=== PATIENT | male | born 1935 | race Caucasian/White ===

== ENCOUNTER 2019-03-28 14:12 | Inpatient (IN) | payer OTHER, MEDICARE ==
--- NOTE | 2019-03-28 14:24 | PDOC ---
Attending Attestation - Resident Resident Name: Mitzi Wisdom - ED Attending Attestation I have performed the following: I have examined & evaluated the patient, The case was reviewed & discussed with the resident, I agree w/resident's findings & plan, Exceptions are as noted - HPI HPI: 03/28/19 14:32 83-year-old male, was visiting his daughter in [place] yesterday, slid on some wet grass and fractured his right ankle. Seen at [facility], splinted, given crutches, which he has extreme difficulty in using. Has been getting around with a cane, using the cane to pressed the accelerator on his car when he drives. He lives alone, closest relatives are in [place], but they were out of the country on vacation. Has another daughter inherited chills undergoing chemotherapy for colon cancer. No smoking drinking or drugs. Past medical history significant for type 2 diabetes for 25 years and hypertension, both controlled on medication. No history of MN, CVA, chest or abdominal surgery. Surgery on his lumbosacral spine was [place] [address] Anthony, and he has been stable. - Physicial Exam PE: 03/28/19 14:35 Physical exam: Alert and oriented cheerful and cooperative no acute distress. Afebrile, vital signs normal HEENT clear Neck supple without bruit mass or nodes Lungs clear CV regular without murmur rub or gallop Abdomen benign Extremities: Right ankle splinted and wrapped. Mild calf edema. - Medical Decision Making 03/28/19 14:36 Assessment: Ankle fracture. Unable to care for himself at home. Plan: Admit for ORIF. Institution of physical therapy, and rehabilitation placement.
--- NOTE | 2019-03-28 14:39 | PDOC ---
History of Present Illness - General Chief Complaint: Pain, Acute Stated Complaint: right ankle fx Time Seen by Provider: 03/28/19 14:22 History Source: Patient Exam Limitations: No Limitations - History of Present Illness Initial Comments: Pt is an 83 yo M, with PMH of HTN, HLD, "heart murmur", and NIDDM, who is presenting after being diagnosed with an ankle fracture yesterday. Pt states yesterday he fell down 4 stairs, landing onto his buttocks. Pt denies hitting his head, LOC, nausea/vomiting, or confusion. Pt went to [facility], and had a hard splint applied to his R ankle after showing an ankle fracture on x- ray. Dr. Anthony is aware of pts images, however the pt had no family at home to help him get around the house or bring him to his surgery tomorrow, so he came to the ER today. Pt denies any fevers/chills, headache, vision changes, syncope , chest pain, palpitations, SOB, nausea/vomiting, abdominal pain, urinary symptoms, diarrhea/constipation, numbness/tingling/weakness in the extremities, or leg swelling. Allergies: NKDA Ortho: Dr. Anthony Social: Pt denies any cigarette, alcohol, or drug use. Pt denies any recent travel or sick contacts. Surgical: "back surgery" (done by Dr. Anthony, per pt). Family: no relevant history. 03/28/19 14:50 03/28/19 15:45 03/28/19 15:57 Past History - Travel Traveled outside of the country in the last 30 days: No Close contact w/someone who was outside of country & ill: No - Past Medical History Allergies/Adverse Reactions: Allergies Allergy/AdvReac Type Severity Reaction Status Date / Time Penicillins Allergy Severe Hives Verified 03/28/19 14:14 Home Medications: Ambulatory Orders Amlodipine Besylate [Norvasc -] 10 mg PO DAILY 03/28/19 Atenolol [Tenormin -] 50 mg PO DAILY 03/28/19 Glipizide [Glucotrol -] 10 mg PO BID 03/28/19 Metformin HCl [Glucophage] 1,000 mg PO BID 03/28/19 Pravastatin Sodium [Pravachol] 40 mg PO HS 03/28/19 Sitagliptin Phosphate [Januvia] 100 mg PO DAILY 03/28/19 Anemia: No Asthma: No Cancer: No Cardiac Disorders: Yes (MURMUR) CVA: No COPD: No CHF: No Dementia: No Diabetes: Yes (type 2 10-15 years) GI Disorders: No Disorders: No HTN: Yes Hypercholesterolemia: Yes Liver Disease: No Seizures: No Thyroid Disease: No - Surgical History Abdominal Surgery: No Appendectomy: No Cardiac Surgery: Yes (Endarterectomy L(2007)R(2008)) Cholecystectomy: No Lung Surgery: No Neurologic Surgery: No Orthopedic Surgery: No - Immunization History Immunization Up to Date: Yes - Suicide/Smoking/Psychosocial Hx Smoking Status: Yes Smoking History: Former smoker Have you smoked in the past 12 months: No Number of Cigarettes Smoked Daily: 0 Cigars Per Day: 0 Information on smoking cessation initiated: No Hx Alcohol Use: No Drug/Substance Use Hx: No Substance Use Type: None Review of Systems - Review of Systems Able to Perform ROS?: Yes Is the patient limited Slovak proficient: No Constitutional: Yes: Weight Stable. No: Chills, Diaphoresis, Fever, Malaise, Weakness HEENTM: No: Blurred Vision, Double Vision, Nose Congestion, Throat Pain, Throat Swelling, Difficulty Swallowing Respiratory: No: Cough, Orthopnea, Shortness of Breath Cardiac (ROS): No: Chest Pain, Edema, Irregular Heart Rate, Lightheadedness, Palpitations, Syncope, Chest Tightness ABD/GI: No: Constipated, Diarrhea, Nausea, Poor Appetite, Poor Fluid Intake, Vomiting : No: Burning, Dysuria, Frequency, Pain, Urgency Musculoskeletal: Yes: See HPI, Joint Pain (R ankle pain s/p fall). No: Back Pain, Muscle Pain, Muscle Weakness, Neck Pain Integumentary: No: Bruising, Rash Neurological: No: Headache, Numbness, Paresthesia, Weakness, Unsteady Gait, Dizziness Psychiatric: No: Sleep Pattern Change, Change in Appetite Endocrine: No: Increased Urine, Change in Weight Hematologic/Lymphatic: No: Anemia, Blood Clots, Easy Bleeding, Easy Bruising All Other Systems: Reviewed and Negative *Physical Exam - Vital Signs Last Vital Signs Temp Pulse Resp BP Pulse Ox 98.9 F 60 18 152/61 97 03/28/19 14:13 03/28/19 14:13 03/28/19 14:13 03/28/19 14:13 03/28/19 14:13 - Physical Exam Comments: Vitals stable, pt afebrile. Pt in NAD, normal body habitus. Pt alert and oriented x3. 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 No midline spinal tenderness, step-offs, or crepitus. Head normocephalic, atraumatic. Eyes PERRLA, EOMI. Oropharynx without erythema or exudates, no LAD b/l. No nasal congestion, hearing intact. Clear heart sounds, S1/S2, no JVD, b/l pedal edema, or heart murmur. Clear lung sounds, no respiratory distress, wheezes, crackles, or accessory muscle use. No abdominal or CVA tenderness to palpation, no rebound, no guarding. Abdomen soft, non-distended, and with normoactive bowel sounds. Hard splint applied to R ankle. Sensation and capillary refill intact in b/l LE. Skin without jaundice or rash. 03/28/19 15:59 ED Treatment Course - LABORATORY CBC & Chemistry Diagram: 03/28/19 14:38 03/28/19 14:35 Medical Decision Making - Medical Decision Making Pt was seen at bedside, also will be seen by attending Dr. Howell. Pt presenting with R ankle fracture in splint, for surgery with Dr. Anthony tomorrow. Ordered pre-operative labwork. Provided 1 g IV ofirmev for improvement of pain. Will continue to reassess pt and monitor for symptomatic improvement. ECG: NSR, intervals WNL (HR 60, FL 190, QRS 96, QTc 406). TWIs in II. Q waves anterior leads. No significant changes from prior ECG (2012). Placed consult for surgery due to murmur and Q waves to make sure pt is stable for surgery. 03/28/19 15:01 CBC and CMP WNL. Pt admitted to hospitalist team, will get surgery on R ankle tomorrow with Dr. Anthony. Pt resting comfortably. 03/28/19 16:00 *DC/Admit/Observation/Transfer Diagnosis at time of Disposition: Ankle fracture, right Qualifiers: Encounter type: initial encounter Fracture type: closed Qualified Code(s): S82.891A - Other fracture of right lower leg, initial encounter for closed fracture - Discharge Dispostion Condition at time of disposition: Stable Decision to Admit order: Yes - Referrals - Patient Instructions - Post Discharge Activity
[2019-03-28 15:00] LABS: BASO % 0.3 % (0-2.0); EOS % 2.2 % (0-4.5); HEMATOCRIT 36.2 % (35.4-49); HEMOGLOBIN 12.1 GM/dl (11.7-16.9); LYMPH % 9.6 % (8-40); MCH 30.1 pg (25.7-33.7); MCHC 33.5 g/dl (32.0-35.9); MEAN CELL VOLUME 89.7 fl (80-96); MEAN PLT VOLUME 8.3 fl (7.5-11.1); NEUT % 78.9 % (42.8-82.8); PLATELET COUNT 305 K/MM3 (134-434); RBC 4.03 M/mm3 (4.00-5.60); RDW 13.6 % (11.9-15.9); WHITE BLOOD COUNT 6.8 K/mm3 (4.0-10.8)
[2019-03-28 15:04] LABS: INR 1.25 (0.82-1.09); PROTHROMBIN TIME (PATIENT) 13.9 SEC (10.2-13.0)
[2019-03-28 15:08] LABS: ALBUMIN 3.8 g/dl (3.4-5.0); BILIRUBIN,TOTAL 1.1 mg/dl (0.2-1); CALCIUM 9.5 mg/dl (8.5-10); CREATININE 0.9 mg/dl (0.55-1.3); POTASSIUM 4.5 mmol/L (3.5-5.1); TOT PROT 6.9 g/dl (6.4-8.2)
[2019-03-28] MEDS ORDERED: ACETAMINOPHEN 1000 MG/100 ML VIAL (NON FORMULARY) IVPB ONE (15:08)
--- NOTE | 2019-03-28 15:14 | CON.CARD ---
Consult Consult Specialty:: cardio - History of Present Illness Chief Complaint: preop History of Present Illness: 83 M here with ankle fracture. had mechanical injury to ankle (wet grass, slipped), planned for surgical repair. due to abnormal ekg we were asked to evaluate his preop CV risk/optimization he is not very active in his routine. walks about 2 blocks to [place] when mg for MD visit there--doesn't stop, no cp or sob. no stairs in his routine. never notices any cp or sob sx's. diagnosed with "murmur" in 1950s when entered [facility]. had echo few months ago with pmd at [place], not told of any problems or necessary treatments. doesn't see cardio denies h/o CAD/TN, CHF, arrhythmia or stroke. PMH: HTN HPL remote bilateral CEAs no sigs - Alcohol/Substance Use Hx Alcohol Use: No - Smoking History Smoking history: Former smoker Have you smoked in the past 12 months: No Aproximately how many cigarettes per day: 0 Home Medications - Allergies Allergies/Adverse Reactions: Allergies Allergy/AdvReac Type Severity Reaction Status Date / Time Penicillins Allergy Severe Hives Verified 03/28/19 14:14 - Home Medications Home Medications: Ambulatory Orders Amlodipine Besylate [Norvasc -] 10 mg PO DAILY 03/28/19 Atenolol [Tenormin -] 50 mg PO DAILY 03/28/19 Glipizide [Glucotrol -] 10 mg PO BID 03/28/19 Metformin HCl [Glucophage] 1,000 mg PO BID 03/28/19 Pravastatin Sodium [Pravachol] 40 mg PO HS 03/28/19 Sitagliptin Phosphate [Januvia] 100 mg PO DAILY 03/28/19 Family Disease History - Family Disease History Family History: Denies (no known cmp) Review of Systems - Review of Systems Constitutional: denies: Chills, Fever Eyes: denies: Eye Pain HENT: denies: Nasal Congestion Neck: denies: Stiffness Cardiovascular: denies: Palpitations Respiratory: denies: Orthopnea, PND Gastrointestinal: denies: Diarrhea, Rectal Bleeding Genitourinary: denies: Burning, Hematuria Musculoskeletal: denies: Muscle Pain Integumentary: denies: Rash Neurological: denies: Numbness, Seizure, Syncope Endocrine: denies: Excessive Sweating Hematology/Lymphatic: denies: Excessive Bleeding Vital Signs: Vital Signs Temperature 98.9 F 03/28/19 14:13 Pulse Rate 60 03/28/19 14:13 Respiratory Rate 18 03/28/19 14:13 Blood Pressure 152/61 03/28/19 14:13 O2 Sat by Pulse Oximetry (%) 97 03/28/19 14:13 Constitutional: Yes: Well Nourished, No Distress Eyes: No: Sclera Icterus HENT: No: Nasal Congestion Neck: No: Decreased ROM Respiratory: Yes: CTA Bilaterally. No: Accessory Muscle Use, Rales, Wheezes Gastrointestinal: Yes: Normal Bowel Sounds. No: Distention, Hepatomegaly, Palpable Mass, Tenderness Cardiovascular: Yes: Regular Rate and Rhythm JVD: No Carotid Bruit: Yes PMI: Non-Displaced Heart Sounds: Yes: S1, S2 (reduced intensity). No: Gallop Murmur: Yes: Systolic Murmur (2/6 early MARY BETH lusb, soft sounds no S2 split heard. probably soft, flat murmur at apex). No: Diastolic Murmur Musculoskeletal: Yes: Other (No kyphosis) Extremities: No: Cold, Cyanosis Edema: No Peripheral Pulses: 2+ Left Carotid, 2+ Right Carotid, 2+ Left Doralis Pedis, 2+ Right Dorsalis Pedis Integumentary: No: Jaundice Neurological: Yes: Alert, Oriented (x3) Psychiatric: No: Agitated - Other Data Labs, Other Data: CBC, BMP 03/28/19 14:38 INR, PTT INR 1.25 (0.82-1.09) H 03/28/19 14:38 Assessment/Plan ECG: NSR, normal axis/intervals. q waves inferior leads, V-V3 with small R wave V4--anterior leads not signif changed vs 2011, 2013 priors, however q wave in avF is new CXR: clear lungs/pleura ankle frx, abnormal ecg, preop CV eval: -Revised CV Risk Index = 1, preserved functional capacity -has chronic murmur, no intervention has been rec'd as of echo done at [place] 3 mo ago (in [facility]). -phys exam likely mitral regurgitation (which does not significantly increase CV risk of surgery/anesthesia, given no signs of chf), and probably second murmur that is soft and hence not likely to represent severe but due to overall decr intensity heart sounds, cannot definitively evaluate this (no S2 split heard) -he should have echo in AM to rule out severe , for risk stratification prior to surgery (and for possible anesthesia agent considerations) -possible L > R carotid bruits, more likely transmitted heart murmur--will check dopplers prior to surgery as well (pt with h/o bilateral CEAs) -hold home aspirin preop -cont home bb (atenolol) -nonspecific change in avF on ekg, possibly intercurrent silent IWMI vs 2012-- regardless, in absence of active angina this does not significantly alter surgical risk and no stress testing is warranted here, as per ACC guidelines HTN: -bp mildly elevated presently -cont home meds, observe trend HPL: -on prava at home--cont same, outpt f/u rec'd DM: -per hospitalist
--- NOTE | 2019-03-28 15:29 | HP ---
CHIEF COMPLAINT: Right ankle fracture PCP: Followed at the [place] HISTORY OF PRESENT ILLNESS: 83-year-old male with a PMH significant for HTN, HLD, CAD, carotid artery disease, and Type II NIDDM presented to the ED today for evaluation of right ankle pain. Patient slipped and fell yesterday descending an outside staircase that was slippery from rain. He went to [facility], had xrays, and was told the ankle was fractured and to follow up with an orthopedist. Today patient was seen by Dr. Anthony. Xray showed right bimalleolar ankle fracture. Plan is for ORIF tomorrow with Dr. Eisenberg pending cardiac clearance. 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 prior to back surgery in 2012 ; wishes to avoid all narcotic medication Family History: Mother 77 PNA; father 52 MT; 1/2 brother 78 stomach cancer; sister 77 spesis; 1 daughter age 65 with colon cancer; 3 other children a&w Allergies Penicillins Allergy (Severe, Verified 03/28/19 14:14) Hives HOME MEDICATIONS: Home Medications Medication Instructions Recorded Amlodipine Besylate [Norvasc -] 10 mg PO DAILY 03/28/19 Atenolol [Tenormin -] 50 mg PO DAILY 03/28/19 Glipizide [Glucotrol -] 10 mg PO BID 03/28/19 Metformin HCl [Glucophage] 1,000 mg PO BID 03/28/19 Pravastatin Sodium [Pravachol] 40 mg PO HS 03/28/19 Sitagliptin Phosphate [Januvia] 100 mg PO DAILY 03/28/19 REVIEW OF SYSTEMS CONSTITUTIONAL: Absent: fever, chills, diaphoresis, generalized weakness, malaise, loss of appetite, weight change HEENT: Absent: rhinorrhea, nasal congestion, throat pain, throat swelling, difficulty swallowing, mouth swelling, ear pain, eye pain, visual changes CARDIOVASCULAR: Absent: chest pain, syncope, palpitations, irregular heart rate, lightheadedness , peripheral edema RESPIRATORY: Absent: cough, shortness of breath, dyspnea with exertion, orthopnea, wheezing, stridor, hemoptysis GASTROINTESTINAL: Absent: abdominal pain, abdominal distension, nausea, vomiting, diarrhea, constipation, melena, hematochezia GENITOURINARY: Absent: dysuria, frequency, urgency, hesitancy, hematuria, flank pain, genital pain MUSCULOSKELETAL: +right ankle pain Absent: myalgia, arthralgia, joint swelling, back pain, neck pain SKIN: Absent: rash, itching, pallor HEMATOLOGIC/IMMUNOLOGIC: Absent: easy bleeding, easy bruising, lymphadenopathy, frequent infections ENDOCRINE: Absent: unexplained weight gain, unexplained weight loss, heat intolerance, cold intolerance NEUROLOGIC: Absent: headache, focal weakness or paresthesias, dizziness, unsteady gait, seizure, mental status changes, bladder or bowel incontinence PSYCHIATRIC: Absent: anxiety, depression, suicidal or homicidal ideation, hallucinations. PHYSICAL EXAMINATION Vital Signs - 24 hr 03/28/19 14:13 Temperature 98.9 F Pulse Rate 60 Respiratory 18 Rate Blood Pressure 152/61 O2 Sat by Pulse 97 Oximetry (%) GENERAL: Awake, alert, and fully oriented, in no acute distress. HEAD: Normal with no signs of trauma. EYES: Pupils equal, round and reactive to light, extraocular movements intact, sclera anicteric, conjunctiva clear. No lid lag. LUNGS: Breath sounds equal, clear to auscultation bilaterally. No wheezes, and no crackles. No accessory muscle use. HEART: Regular rate and rhythm, S1 and S2 ABDOMEN: Soft, nontender, not distended UPPER EXTREMITIES: 2+ pulses, warm, well-perfused. No cyanosis. No clubbing. No peripheral edema. LOWER EXTREMITIES: 2+ pulses, warm, well-perfused. No calf tenderness. No peripheral edema. MUSCULOSKELETAL: RIGHT ANKLE: Victor Manuel bandage with splint; exposed toes pink, warm, dry, +flex/extend, 5/5 sensory NEUROLOGICAL: Cranial nerves II-XII intact. Normal speech. Laboratory Results - last 24 hr 03/28/19 03/28/19 03/28/19 14:35 14:35 14:38 WBC 6.8 RBC 4.03 Hgb 12.1 Hct 36.2 MCV 89.7 MCH 30.1 MCHC 33.5 RDW 13.6 Plt Count 305 MPV 8.3 Absolute Neuts (auto) 5.5 Neutrophils % 78.9 Lymphocytes % 9.6 Monocytes % 9.0 Eosinophils % 2.2 Basophils % 0.3 PT with INR INR Sodium 136 Potassium 4.5 Chloride 100 Carbon Dioxide 29 Anion Gap 7 L BUN 26.0 H Creatinine 0.9 Est GFR (CKD-EPI)AfAm 89.95 Est GFR (CKD-EPI)NonAf 77.61 Random Glucose 203 H Calcium 9.5 Total Bilirubin 1.1 H AST 18 ALT 22 Alkaline Phosphatase 54 Creatine Kinase 42 Troponin I < 0.03 Total Protein 6.9 Albumin 3.8 03/28/19 14:38 WBC RBC Hgb Hct MCV MCH MCHC RDW Plt Count MPV Absolute Neuts (auto) Neutrophils % Lymphocytes % Monocytes % Eosinophils % Basophils % PT with INR 13.9 H INR 1.25 H Sodium Potassium Chloride Carbon Dioxide Anion Gap BUN Creatinine Est GFR (CKD-EPI)AfAm Est GFR (CKD-EPI)NonAf Random Glucose Calcium Total Bilirubin AST ALT Alkaline Phosphatase Creatine Kinase Troponin I Total Protein Albumin ASSESSMENT/PLAN 83-year-old male with a PMH significant for HTN, HLD, CAD, carotid artery disease, and Type II NIDDM. Admitted for right bimalleolar fracture. Right bimalleolar ankle fracture --plan is for ORIF with Dr. Eisenberg pending cardiology clearance --AVOID OPIOIDS, patient reports previous problem with oxycodone surrounding back surgery and he is anxious to avoid Coronary artery disease Abnormal ECG --seen and evaluated by cardiology, needs echo and US carotids in am --NOT yet cleared for surgery Hypertension --continue atenolol, amlodipine Hyperlipidemia --continue Lipitor Carotid artery disease --hold ASA, continue Lipitor Type II NIDDM --Novolog sliding scale coverage FEN Fluids: PO intake adequate Electrolytes: replete as indicated Nutrition: diabetic, low sodium; NPO after midnight DVT prophylaxis: TEDs, SCD left leg Physical therapy Dispo: continues to require inpatient care. Full code. Visit type - Emergency Visit Emergency Visit: Yes ED Registration Date: 03/28/19 Care time: The patient presented to the Emergency Department on the above date and was hospitalized for further evaluation of their emergent condition. - New Patient This patient is new to me today: Yes Date on this admission: 03/28/19 - Critical Care Critical Care patient: No
[2019-03-28] MEDS ORDERED: ACETAMINOPHEN INJECTION 100 ML IVPB ONE (15:54)
--- NOTE | 2019-03-28 18:36 | PN ---
Progress Note (short form) - Note Progress Note: Patient evaluated in office today. Sustained right ankle fracture yesterday. Drove to hospital using cane to push accelerator. Admitted for surgical treatment IMP: Right bimalleolar ankle fracture -for ORIF with Dr Eisenberg tomorrow pending med clearance -plan discussed with Dr Eisenberg -NPO after midnight
[2019-03-28 18:45] VITALS: BMI 24.3
[2019-03-28] MEDS ORDERED: ACETAMINOPHEN 1000 MG/100 ML VIAL (NON FORMULARY) IVPB PRN (21:00)
[2019-03-28] MEDS: ATORVASTATIN CA 10 MG TABLET (FP) PO SCH (21:01)
[2019-03-28] MEDS: INSULIN SLIDING SCALE (NOVOLOG) 1 VIAL SQ SCH (21:27)
[2019-03-28] MEDS ORDERED: SODIUM CHLORIDE 1,000 ML IV SCH (23:59)
[2019-03-29] MEDS: INSULIN SLIDING SCALE (NOVOLOG) 1 VIAL SQ SCH ×3 (06:33→22:01)
--- NOTE | 2019-03-29 07:38 | PN ---
Physical Exam: SUBJECTIVE: Patient seen and examined at bedside. OBJECTIVE: Vital Signs Period Temp Pulse Resp BP Sys/Ruiz Pulse Ox Last 24 Hr 98.3 F-99.4 F 56-76 16-18 124-152/38-61 93-98 GENERAL: The patient is awake, alert, and fully oriented, in no acute distress. LUNGS: Breath sounds equal, clear to auscultation bilaterally HEART: Regular rate and rhythm, S1, S2 ABDOMEN: Soft, nontender, nondistended, EXTREMITIES: 2+ pulses, warm, well-perfused, no edema. NEUROLOGICAL: Cranial nerves II through XII grossly intact. Normal speech, gait not observed. MUSCULOSKELETAL: RIGHT ANKLE: Victor Manuel bandage with splint; exposed toes pink, warm, dry, +flex/extend, 5/5 sensory Laboratory Results - last 24 hr 03/28/19 03/28/19 03/28/19 14:35 14:35 14:38 WBC 6.8 RBC 4.03 Hgb 12.1 Hct 36.2 MCV 89.7 MCH 30.1 MCHC 33.5 RDW 13.6 Plt Count 305 MPV 8.3 Absolute Neuts (auto) 5.5 Neutrophils % 78.9 Lymphocytes % 9.6 Monocytes % 9.0 Eosinophils % 2.2 Basophils % 0.3 PT with INR INR Sodium 136 Potassium 4.5 Chloride 100 Carbon Dioxide 29 Anion Gap 7 L BUN 26.0 H Creatinine 0.9 Est GFR (CKD-EPI)AfAm 89.95 Est GFR (CKD-EPI)NonAf 77.61 POC Glucometer Random Glucose 203 H Calcium 9.5 Total Bilirubin 1.1 H AST 18 ALT 22 Alkaline Phosphatase 54 Creatine Kinase 42 Troponin I < 0.03 Total Protein 6.9 Albumin 3.8 Urine Color Urine Appearance Urine pH Urine Protein Urine Glucose (UA) Urine Ketones Urine Blood Urine Nitrite Urine Bilirubin Urine Urobilinogen Ur Leukocyte Esterase Urine RBC Urine WBC Urine Bacteria 03/28/19 03/28/19 03/28/19 14:38 15:50 20:51 WBC RBC Hgb Hct MCV MCH MCHC RDW Plt Count MPV Absolute Neuts (auto) Neutrophils % Lymphocytes % Monocytes % Eosinophils % Basophils % PT with INR 13.9 H INR 1.25 H Sodium Potassium Chloride Carbon Dioxide Anion Gap BUN Creatinine Est GFR (CKD-EPI)AfAm Est GFR (CKD-EPI)NonAf POC Glucometer 155 Random Glucose Calcium Total Bilirubin AST ALT Alkaline Phosphatase Creatine Kinase Troponin I Total Protein Albumin Urine Color Yellow Urine Appearance Clear Urine pH 5.5 Urine Protein 1+ H Urine Glucose (UA) Trace Urine Ketones 1+ H Urine Blood Negative Urine Nitrite Negative Urine Bilirubin Negative Urine Urobilinogen 0.2 Ur Leukocyte Esterase Negative Urine RBC 0-2 Urine WBC 5-10 Urine Bacteria Few 03/29/19 06:19 WBC RBC Hgb Hct MCV MCH MCHC RDW Plt Count MPV Absolute Neuts (auto) Neutrophils % Lymphocytes % Monocytes % Eosinophils % Basophils % PT with INR INR Sodium Potassium Chloride Carbon Dioxide Anion Gap BUN Creatinine Est GFR (CKD-EPI)AfAm Est GFR (CKD-EPI)NonAf POC Glucometer 156 Random Glucose Calcium Total Bilirubin AST ALT Alkaline Phosphatase Creatine Kinase Troponin I Total Protein Albumin Urine Color Urine Appearance Urine pH Urine Protein Urine Glucose (UA) Urine Ketones Urine Blood Urine Nitrite Urine Bilirubin Urine Urobilinogen Ur Leukocyte Esterase Urine RBC Urine WBC Urine Bacteria Active Medications Generic Name Dose Route Start Last Admin Trade Name Freq PRN Reason Stop Dose Admin Acetaminophen 1,000 mg 03/28/19 21:00 03/29/19 02:33 Ofirmev Injection - IVPB 1,000 mg Q6H PRN Administration PAIN LEVEL 1-5 Amlodipine Besylate 10 mg 03/29/19 10:00 Norvasc - PO DAILY OSCAR Atenolol 50 mg 03/29/19 10:00 Tenormin - PO DAILY OSCAR Atorvastatin Calcium 10 mg 03/28/19 22:00 03/28/19 21:01 Lipitor - PO 10 mg HS OSCAR Administration Sodium Chloride 1,000 mls @ 100 mls/hr 03/28/19 23:59 03/29/19 00:00 Normal Saline - IV 100 mls/hr ASDIR OSCAR Administration Insulin Aspart 1 vial 03/28/19 22:00 03/29/19 06:33 Novolog Vial Sliding Scale - SQ Not Given ACHS [facility] Protocol ASSESSMENT/PLAN 83-year-old male with a PMH significant for HTN, HLD, CAD, carotid artery disease, and Type II NIDDM. Admitted for right bimalleolar fracture. Right bimalleolar ankle fracture --cleared by cardiology; to OR this afternoon --AVOID OPIOIDS, patient reports previous problem with oxycodone surrounding back surgery and he is anxious to avoid Coronary artery disease Hypertension --continue atenolol, amlodipine Hyperlipidemia --continue Lipitor Carotid artery disease --hold ASA, continue Lipitor Type II NIDDM --Novolog sliding scale coverage FEN Fluids: NS@100mL/hr while NPO Electrolytes: replete as indicated Nutrition: NPO DVT prophylaxis: TEDs, SCD left leg Physical therapy Dispo: continues to require inpatient care. Full code. Visit type - Emergency Visit Emergency Visit: Yes ED Registration Date: 03/28/19 Care time: The patient presented to the Emergency Department on the above date and was hospitalized for further evaluation of their emergent condition. - New Patient This patient is new to me today: No - Critical Care Critical Care patient: No
[2019-03-29 08:41] LABS: BASO % 0.3 % (0-2.0); EOS % 4.1 % (0-4.5); HEMATOCRIT 35.5 % (35.4-49); HEMOGLOBIN 12.3 GM/dl (11.7-16.9); LYMPH % 17.8 % (8-40); MCH 30.8 pg (25.7-33.7); MCHC 34.5 g/dl (32.0-35.9); MEAN CELL VOLUME 89.3 fl (80-96); MEAN PLT VOLUME 8.8 fl (7.5-11.1); MONO % 10.9 % (3.8-10.2); NEUT % 66.9 % (42.8-82.8); PLATELET COUNT 293 K/MM3 (134-434); RBC 3.97 M/mm3 (4.00-5.60); RDW 13.8 % (11.9-15.9)
[2019-03-29 09:04] LABS: ALBUMIN 3.6 g/dl (3.4-5.0); CALCIUM 9.3 mg/dl (8.5-10); CREATININE 0.9 mg/dl (0.55-1.3); MAGNESIUM 1.3 mg/dL (1.8-2.4); POTASSIUM 4.2 mmol/L (3.5-5.1); TOT PROT 6.5 g/dl (6.4-8.2)
[2019-03-29] MEDS: amLODIPine BESYLATE 10 MG TABLET (FP) PO SCH (09:20)
[2019-03-29] MEDS: ATENOLOL 50 MG TABLET (FP) PO SCH (09:20)
--- NOTE | 2019-03-29 10:31 | ECHO ---
Name: ISAIAS MENDOZA Exam:Adult Echocardiogram Study Date: 03/29/2019 09:34 AM Age: 83 yrs Reason For Study: Pre-op Height: 67 in Weight: 154 lb BSA: 1.8 m2 MMode/2D Measurements & Calculations IVSd: 1.4 cm Ao root diam: 3.3 cm LVIDd: 3.7 cm LA dimension: 3.5 cm LVIDs: 2.1 cm LVPWd: 1.4 cm EDV(Teich): 57.7 ml LVOT diam: 2.0 cm ESV(Teich): 14.6 ml Doppler Measurements & Calculations MV E max charbel: 96.6 cm/sec MV A max charbel: 156.2 cm/sec MV dec slope: 376.5 cm/sec2 MV E/A: 0.62 Ao V2 max: 219.0 cm/sec LV V1 max P.4 mmHg Ao max P.2 mmHg LV V1 mean P.6 mmHg Ao V2 mean: 154.0 cm/sec LV V1 max: 148.5 cm/sec Ao mean P.0 mmHg LV V1 mean: 105.3 cm/sec Ao V2 VTI: 47.5 cm LV V1 VTI: 32.4 cm JULIANNA(I,D): 2.1 cm2 JULIANNA(V,D): 2.1 cm2 MR max charbel: 565.9 cm/sec SV(LVOT): 101.7 ml MR max P.1 mmHg PA V2 max: 157.0 cm/sec PA max P.9 mmHg Procedure The study was technically difficult with many images being suboptimal in quality. Left Ventricle Moderate basal septal hypertrophy. Left ventricular systolic function is grossly normal. Ejection Fra ction = 50-55%. The transmitral spectral Doppler flow pattern is suggestive of impaired LV relaxation. Region al wall motion abnormalities cannot be excluded due to limited visualization. Right Ventricle The right ventricle is grossly normal size. The right ventricular systolic function is normal. Atria The left atrium is borderline dilated. Right atrial size is normal. Mitral Valve There is moderate mitral annular calcification. There is no mitral valve stenosis. There is mild to m oderate mitral regurgitation. Tricuspid Valve The tricuspid valve is normal in structure and function. There is mild tricuspid regurgitation. Right ventricular systolic pressure is normal. Aortic Valve There is moderate to severe aortic valve thickening. Probably at least mild aortic stenosis, severity may be underestimated due to poor alignment of CW doppler. No aortic regurgitation is present. Pulmonic Valve The pulmonic valve is not well seen, but is grossly normal. There is no pulmonic valvular stenosis. Great Vessels The aortic root is normal size. Pericardium/Pleura There is no pericardial effusion. Interpretation Summary The study was technically difficult with many images being suboptimal in quality. Left ventricular systolic function is grossly normal. Ejection Fraction = 50-55%. Moderate basal septal hypertrophy. The transmitral spectral Doppler flow pattern is suggestive of impaired LV relaxation. There is moderate mitral annular calcification. There is mild to moderate mitral regurgitation. There is mild tricuspid regurgitation. There is moderate to severe aortic valve thickening. Probably at least mild aortic stenosis, severity may be underestimated due to poor alignment of CW do ppler. There is no pericardial effusion. MD Sherman *Tracy 03/29/2019 10:30 AM
--- NOTE | 2019-03-29 11:15 | EKG ---
Test Reason : Blood Pressure : / mmHG Vent. Rate : 060 BPM Atrial Rate : 060 BPM P-R Int : 190 ms QRS Dur : 096 ms QT Int : 406 ms P-R-T Axes : 023 -02 028 degrees QTc Int : 406 ms NORMAL SINUS RHYTHM INFERIOR INFARCT , AGE UNDETERMINED ANTEROSEPTAL INFARCT (CITED ON OR BEFORE 31-JAN-2012) ABNORMAL ECG WHEN COMPARED WITH ECG OF 08-AUG-2013 04:11, INFERIOR INFARCT IS NOW PRESENT Confirmed by TOMI WOOD MD ([id number]) on 03/29/2019 11:15:21 AM Referred By: Confirmed By:TOMI WOOD MD
[2019-03-29] MEDS ORDERED: BUPIVACAINE HCL/PF 0.5% (5 MG/ML) 30 ML VIAL IJ ONE (13:12)
[2019-03-29] MEDS ORDERED: MEPIVACAINE HCL/PF 1% 30 ML VIAL ONE (13:12)
[2019-03-29] MEDS ORDERED: MIDAZOLAM HCL 2 MG/2 ML SINGLE DOSE VIAL ONE (13:15)
--- NOTE | 2019-03-29 13:15 | OP ---
Operative Note - Note: Operative Date: 03/29/19 Pre-Operative Diagnosis: Right ankle fracture Operation: Right ankle ORIF Post-Operative Diagnosis: Same as Pre-op Surgeon: Major Eisenberg Solid State Tester: Carlie Henry Anesthesiologist/SPEECH TEACHER: Sandip Fuller Anesthesia: Local, Fractional Operative Report Dictated: Yes
[2019-03-29] MEDS ORDERED: ENOXAPARIN NA (PORCINE) 40 MG/0.4 ML DISP.SYRIN SQ SCH (13:30)
[2019-03-29] MEDS ORDERED: PROPOFOL 20 ML ONE ×2 (13:42→14:03)
[2019-03-29] MEDS ORDERED: LIDOCAINE 1%/EPI 1:100000 (20 ML MULTI DOSE VIAL) ONE (13:49)
[2019-03-29] MEDS ORDERED: BUPIVACAINE HCL/PF 2.5 MG/ML - 30 ML VIAL IJ ONE (13:49)
[2019-03-29] MEDS ORDERED: LIDOCAINE HCL/PF 2% SDV 5ML VIAL ONE (14:03)
[2019-03-29] MEDS ORDERED: ceFAZolin SODIUM 1 GM VIAL ONE ×2 (14:03)
[2019-03-29] MEDS ORDERED: ROCURONIUM BROMIDE 50 MG/5 ML SYRINGE ONE ×2 (14:54)
[2019-03-29] MEDS ORDERED: DEXAMETHASONE SOD PHOSPHATE 4 MG/1 ML VIAL ONE (15:37)
[2019-03-29] MEDS ORDERED: ONDANSETRON 4 MG/2 ML VIAL ONE (15:37)
[2019-03-29] MEDS ORDERED: traMADol HCL 50 MG TABLET PO PRN (15:53)
--- NOTE | 2019-03-29 16:03 | OP ---
DATE OF OPERATION: 03/29/2019 PREOPERATIVE DIAGNOSIS: Right unstable ankle fracture. POSTOPERATIVE DIAGNOSIS: Right unstable ankle fracture. PROCEDURE: Right ankle open reduction and internal fixation. SURGEON: Major Rodriguez MD DRIVER MESSENGER: CHILANGO Collazo, whose skillful assistance was necessary for the safe and timely performance of this procedure. Ms. Henry was able to provide limb positioning, retraction, assist in fracture reduction, as well as insertion of fracture fixation hardware. ANESTHESIA: Regional plus local plus sedation. POSTOPERATIVE CONDITION: Stable. COMPLICATIONS: None. IMPLANTS: Arthrex distal fibular plate with 3.5-mm locking screws x2, and 3.5-mm nonlocking screw x1, 4.0 cancellous screw x1, 2.7 locking screws x 5. INDICATIONS: This is a pleasant 83-year-old gentleman who suffered a twisting injury to his ankle. He was found to have an unstable ankle fracture and admitted to the hospital. Treatment options including nonoperative care with closed reduction and casting versus operative care with open reduction and internal fixation were discussed. Operative risks were reviewed in detail, including bleeding, infection, neurovascular injury, need for further surgery, postoperative pain and stiffness, nonunion, malunion, hardware failure or cutout. We reviewed medical risks such as heart attack, stroke, DVT, PE, and . I addressed the use of perioperative antibiotic and DVT prophylaxis. We reviewed the postoperative rehabilitation protocol. I addressed all the patient's questions and concerns. He voiced understanding and elected to proceed. PROCEDURE: The patient was brought to the operating room, where he was placed supine in the operating room table. He had been given a regional block in the preoperative holding area. The right lower extremity was then prepped and draped in the usual sterile fashion. A preoperative dose of antibiotics was given, and the usual timeout procedure was performed. The limb was then marked out. The injection site was injected subcutaneously with a mixture of 0.5 of 0.25% Marcaine and 0.5 of 1% lidocaine with epinephrine. The incision was then carried down through skin to subcutaneous tissue. Electrocautery was used to maintain hemostasis. A blunt vegetable handler was used to expose the fascia over the fibula, which was then split in line with its fibers. The fracture site was now identified. The fracture site was debrided of any loose debris. A [place] was used to remove any adhesions. The fracture site was irrigated. A fracture reduction forceps was now placed across, reducing it to what was felt to be anatomic reduction. There was a small amount of comminution present, which made absolute anatomic assessment difficult. Fluoroscopy was used to confirm fracture reduction. A 3.5-mm lag screw was now drilled and inserted across the fracture site. A neutralization plate was now chosen. The neutralization plate was affixed initially with a 4.0 cancellous screw into the distal shaft. The plate was then affixed distally utilizing 2.7 locking screws, of which 5 were placed. The 2 additional proximal holes were now filled with 3.5-mm locking screws, which were drilled, measured, and inserted. At this time, the entire construct was examined, both visually and fluoroscopically. Both fracture reduction and hardware placement were satisfactory. The wound was now copiously irrigated. The fascia was closed with 0 Vicryl. The subcutaneous tissue was approximated using 2-0 Vicryl. The skin was closed using running 3-0 nylon. Sterile dressings were placed. The patient was placed into a short well-padded leg cast, which was then bivalved. He was then transferred to recovery room in stable condition. MAJOR RODRIGUEZ M.D. [id number]
[2019-03-29] MEDS ORDERED: ONDANSETRON 4 MG/2 ML VIAL IVPUSH PRN (16:24)
[2019-03-29] MEDS ORDERED: PROMETHAZINE HCL 25 MG/1 ML VIAL IVPUSH PRN (16:24)
[2019-03-29] MEDS ORDERED: oxyCODONE HCL 5 MG TABLET PO PRN (16:24)
[2019-03-29 18:22] LABS: HEMATOCRIT 38.9 % (35.4-49); HEMOGLOBIN 13.2 GM/dl (11.7-16.9); MCH 30.2 pg (25.7-33.7); MCHC 33.9 g/dl (32.0-35.9); MEAN CELL VOLUME 89.3 fl (80-96); MEAN PLT VOLUME 8.2 fl (7.5-11.1); PLATELET COUNT 345 K/MM3 (134-434); RBC 4.35 M/mm3 (4.00-5.60); RDW 13.3 % (11.9-15.9); WHITE BLOOD COUNT 9.1 K/mm3 (4.0-10.8)
[2019-03-29] MEDS ORDERED: INSULIN (NOVOLOG) ASPART 100 UNITS/ML 10ML VIAL ONE (21:57)
[2019-03-29] MEDS: ENOXAPARIN NA (PORCINE) 40 MG/0.4 ML DISP.SYRIN SQ SCH (22:00)
[2019-03-29] MEDS: ATORVASTATIN CA 10 MG TABLET (FP) PO SCH (22:00)
[2019-03-29] MEDS: oxyCODONE HCL 5 MG TABLET PO PRN (22:01)
[2019-03-30] MEDS: oxyCODONE HCL 5 MG TABLET PO PRN (07:41)
[2019-03-30 07:52] LABS: ALBUMIN 3.3 g/dl (3.4-5.0); BILIRUBIN,TOTAL 0.6 mg/dl (0.2-1); CALCIUM 9.2 mg/dl (8.5-10); MAGNESIUM 1.5 mg/dL (1.8-2.4); POTASSIUM 4.2 mmol/L (3.5-5.1); TOT PROT 6.5 g/dl (6.4-8.2)
[2019-03-30 08:00] LABS: BASO % 0.1 % (0-2.0); EOS % 0.1 % (0-4.5); HEMOGLOBIN 11.9 GM/dl (11.7-16.9); LYMPH % 8.6 % (8-40); MCH 29.5 pg (25.7-33.7); MCHC 33.1 g/dl (32.0-35.9); MEAN CELL VOLUME 88.9 fl (80-96); MEAN PLT VOLUME 8.7 fl (7.5-11.1); MONO % 10.6 % (3.8-10.2); NEUT % 80.6 % (42.8-82.8); PLATELET COUNT 315 K/MM3 (134-434); RBC 4.05 M/mm3 (4.00-5.60); RDW 13.6 % (11.9-15.9); WHITE BLOOD COUNT 8.1 K/mm3 (4.0-10.8)
--- NOTE | 2019-03-30 09:34 | PN ---
Physical Exam: SUBJECTIVE: Patient seen and examined at bedside. Seen ambulating with PT. OBJECTIVE: Vital Signs Period Temp Pulse Resp BP Sys/Ruiz Pulse Ox Last 24 Hr 97.7 F-98.5 F 51-58 16-24 120-146/46-77 94-99 GENERAL: The patient is awake, alert, and fully oriented, in no acute distress. LUNGS: Breath sounds equal, clear to auscultation bilaterally HEART: Regular rate and rhythm, S1, S2 ABDOMEN: Soft, nontender, nondistended, EXTREMITIES: 2+ pulses, warm, well-perfused, no edema. NEUROLOGICAL: Cranial nerves II through XII grossly intact. Normal speech MUSCULOSKELETAL: RIGHT ANKLE: Casted Laboratory Results - last 24 hr 03/29/19 03/29/19 03/29/19 11:59 17:40 21:52 WBC 9.1 RBC 4.35 Hgb 13.2 Hct 38.9 MCV 89.3 MCH 30.2 MCHC 33.9 RDW 13.3 Plt Count 345 MPV 8.2 Absolute Neuts (auto) Neutrophils % Lymphocytes % Monocytes % Eosinophils % Basophils % Sodium Potassium Chloride Carbon Dioxide Anion Gap BUN Creatinine Est GFR (CKD-EPI)AfAm Est GFR (CKD-EPI)NonAf POC Glucometer 185 283 Random Glucose Calcium Magnesium Total Bilirubin AST ALT Alkaline Phosphatase Total Protein Albumin 03/30/19 03/30/19 03/30/19 06:36 07:00 07:00 WBC 8.1 RBC 4.05 Hgb 11.9 Hct 36.0 MCV 88.9 MCH 29.5 MCHC 33.1 RDW 13.6 Plt Count 315 MPV 8.7 Absolute Neuts (auto) 6.5 Neutrophils % 80.6 D Lymphocytes % 8.6 D Monocytes % 10.6 H Eosinophils % 0.1 D Basophils % 0.1 Sodium 139 Potassium 4.2 Chloride 103 Carbon Dioxide 29 Anion Gap 7 L BUN 17.0 Creatinine 1.0 Est GFR (CKD-EPI)AfAm 79.19 Est GFR (CKD-EPI)NonAf 68.33 POC Glucometer 157 Random Glucose 177 H Calcium 9.2 Magnesium 1.5 L Total Bilirubin 0.6 AST 15 ALT 18 Alkaline Phosphatase 49 Total Protein 6.5 Albumin 3.3 L Active Medications Generic Name Dose Route Start Last Admin Trade Name Freq PRN Reason Stop Dose Admin Acetaminophen 1,000 mg 03/28/19 21:00 03/29/19 02:33 Ofirmev Injection - IVPB 1,000 mg Q6H PRN Administration PAIN LEVEL 1-5 Amlodipine Besylate 10 mg 03/29/19 10:00 03/29/19 09:20 Norvasc - PO 10 mg DAILY OSCAR Administration Atenolol 50 mg 03/29/19 10:00 03/29/19 09:20 Tenormin - PO 50 mg DAILY OSCAR Administration Atorvastatin Calcium 10 mg 03/28/19 22:00 03/29/19 22:00 Lipitor - PO 10 mg HS OSCAR Administration Enoxaparin Sodium 40 mg 03/29/19 18:45 03/29/19 22:00 Lovenox - SQ 40 mg DAILY OSCAR Administration Fentanyl 50 mcg 03/29/19 16:24 Sublimaze Injection - IVPUSH [id number] PRN PAIN-PACU ORDER X 4 DOSES ONLY Sodium Chloride 1,000 mls @ 100 mls/hr 03/28/19 23:59 03/29/19 00:00 Normal Saline - IV 100 mls/hr ASDIR OSCAR Administration Insulin Aspart 1 vial 03/28/19 22:00 03/29/19 22:01 Novolog Vial Sliding Scale - SQ 6 units ACHS OSCAR Administration Protocol Ondansetron HCl 4 mg 03/29/19 16:24 Zofran Injection IVPUSH Q6H PRN NAUSEA AND/OR VOMITING Oxycodone HCl 5 mg 03/29/19 16:24 Roxicodone - PO Q4H PRN PAIN LEVEL 1-5 Oxycodone HCl 10 mg 03/29/19 16:24 03/30/19 07:41 Roxicodone - PO 10 mg Q4H PRN Administration PAIN LEVEL 6-10 Promethazine HCl 12.5 mg 03/29/19 16:24 Phenergan Injection - IVPUSH Q6H PRN NAUSEA-FOR RESCUE AFTER 15 MIN Tramadol HCl 50 mg 03/29/19 15:53 Ultram - PO Q4H PRN PAIN LEVEL 1-5 ASSESSMENT/PLAN 83-year-old male with a PMH significant for HTN, HLD, CAD, carotid artery disease, and Type II NIDDM. Admitted for right bimalleolar fracture. Right bimalleolar ankle fracture s/p ORIF on 03/[address] Eisenberg --POD #1 --perioperative antibiotics per surgery --pain management: Tylenol and Toradol; no opioids (previous dependency, patient wishes to avoid) --bowel regimen --incentive spirometry Coronary artery disease Hypertension --continue atenolol, amlodipine, ASA, statin Hyperlipidemia --continue Lipitor Carotid artery disease --resume ASA, continue Lipitor Type II NIDDM --Novolog sliding scale coverage Hypomagnesemia --replete FEN Fluids: PO intake adequate Electrolytes: replete as indicated Nutrition: regular DVT prophylaxis: subq lovenox Physical therapy Dispo: continues to require inpatient care. Full code. Visit type - Emergency Visit Emergency Visit: Yes ED Registration Date: 03/28/19 Care time: The patient presented to the Emergency Department on the above date and was hospitalized for further evaluation of their emergent condition. - New Patient This patient is new to me today: No - Critical Care Critical Care patient: No
[2019-03-30] MEDS: ENOXAPARIN NA (PORCINE) 40 MG/0.4 ML DISP.SYRIN SQ SCH (09:39)
[2019-03-30] MEDS: INSULIN SLIDING SCALE (NOVOLOG) 1 VIAL SQ SCH ×2 (09:40→14:56)
[2019-03-30] MEDS: amLODIPine BESYLATE 10 MG TABLET (FP) PO SCH (11:01)
[2019-03-30] MEDS: ATENOLOL 50 MG TABLET (FP) PO SCH (11:01)
[2019-03-30] MEDS ORDERED: KETOROLAC TROMETHAMINE 30 MG/1 ML VIAL IVPUSH PRN (11:16)
[2019-03-30] MEDS ORDERED: ASPIRIN 81 MG CHEWABLE TABLETS PO SCH (12:15)
[2019-03-30] MEDS ORDERED: MAGNESIUM SULF 50% (8.12 MEQ/2 ML-1 GM VIAL) IVPB ONE (12:45)
[2019-03-30 14:03] VITALS: BP 125/35; PULSE 57; TEMP 98.1
--- NOTE | 2019-03-30 15:33 | PN ---
Progress Note (short form) - Note Progress Note: no chest pain, palps, dizziness Acetaminophen (Ofirmev Injection -) 1,000 mg IVPB Q6H PRN PRN Reason: PAIN LEVEL 1-5 Last Admin: 03/29/19 02:33 Dose: 1,000 mg Amlodipine Besylate (Norvasc -) 10 mg PO DAILY [facility] Last Admin: 03/30/19 11:01 Dose: Not Given Aspirin (Asa -) 81 mg PO DAILY [facility] Last Admin: 03/30/19 14:45 Dose: 81 mg Atenolol (Tenormin -) 50 mg PO DAILY [facility] Last Admin: 03/30/19 11:01 Dose: Not Given Atorvastatin Calcium (Lipitor -) 10 mg PO [facility] Last Admin: 03/29/19 22:00 Dose: 10 mg Enoxaparin Sodium (Lovenox -) 40 mg SQ DAILY [facility] Last Admin: 03/30/19 09:39 Dose: 40 mg Insulin Aspart (Novolog Vial Sliding Scale -) 1 vial SQ [facility]; Protocol Last Admin: 03/30/19 14:56 Dose: 8 units Ketorolac Tromethamine (Toradol Injection -) 30 mg IVPUSH Q6H PRN PRN Reason: PAIN LEVEL 6-10 Last Admin: 03/30/19 12:29 Dose: 30 mg Ondansetron HCl (Zofran Injection) 4 mg IVPUSH Q6H PRN PRN Reason: NAUSEA AND/OR VOMITING Promethazine HCl (Phenergan Injection -) 12.5 mg IVPUSH Q6H PRN PRN Reason: NAUSEA-FOR RESCUE AFTER 15 MIN Senna/Docusate Sodium (Pericolace -) 2 tablet PO [facility] Stop: 03/31/19 12:04 Vital Signs Period Temp Pulse Resp BP Sys/Ruiz Pulse Ox Last 24 Hr 97.7 F-98.5 F 51-58 16-24 120-146/35-77 94-99 Constitutional: Yes: Well Nourished, No Distress Eyes: No: Sclera Icterus HENT: No: Nasal Congestion Neck: No: Decreased ROM Respiratory: Yes: CTA Bilaterally. No: Accessory Muscle Use, Rales, Wheezes Gastrointestinal: Yes: Normal Bowel Sounds. No: Distention, Hepatomegaly, Palpable Mass, Tenderness Cardiovascular: Yes: Regular Rate and Rhythm JVD: No Carotid Bruit: Yes PMI: Non-Displaced Heart Sounds: Yes: S1, S2 (reduced intensity). No: Gallop Murmur: Yes: Systolic Murmur (2/6 early MARY BETH lusb, soft sounds no S2 split heard. probably soft, flat murmur at apex). No: Diastolic Murmur Musculoskeletal: Yes: Other (No kyphosis) Extremities: No: Cold, Cyanosis Edema: No Peripheral Pulses: 2+ Left Carotid, 2+ Right Carotid, 2+ Left Doralis Pedis, 2+ Right Dorsalis Pedis Integumentary: No: Jaundice Neurological: Yes: Alert, Oriented (x3) Psychiatric: No: Agitated Assessment/Plan ECG: NSR, normal axis/intervals. q waves inferior leads, V-V3 with small R wave V4--anterior leads not signif changed vs 2011, 2013 priors, however q wave in avF is new CXR: clear lungs/pleura echo 03/2019 tds, nl LV function, moderate basal septal hypertrophy, E/A reversal , mod MAC, mild to mod MR, mild TR, mat least mild , severity may be underestimated carotids no obstructive plaque. 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
--- NOTE | 2019-03-30 17:09 | PN ---
Progress Note (short form) - Note Progress Note: Pt sitting up comf in chair af vss cast in place toes with sensation/motion intact cr<2 a/p pod 1 ankle ORIF elevate strict nwb follow up 10 days for suture removal
--- NOTE | 2019-03-30 17:44 | DS ---
Physical Exam: SUBJECTIVE: Patient seen and examined at bedside. Observed working with PT earlier. OBJECTIVE: Vital Signs Period Temp Pulse Resp BP Sys/Ruiz Pulse Ox Last 24 Hr 97.7 F-98.5 F 51-57 17-20 120-137/35-52 94-99 PHYSICAL EXAM GENERAL: The patient is awake, alert, and fully oriented, in no acute distress. LUNGS: Breath sounds equal, clear to auscultation bilaterally HEART: Regular rate and rhythm, S1, S2 ABDOMEN: Soft, nontender, nondistended, EXTREMITIES: 2+ pulses, warm, well-perfused, no edema. NEUROLOGICAL: Cranial nerves II through XII grossly intact. Normal speech MUSCULOSKELETAL: RIGHT ANKLE: Casted; toes flex/extend, intact sensory Laboratory Results - last 24 hr 03/29/19 03/29/19 03/30/19 17:40 21:52 06:36 WBC 9.1 RBC 4.35 Hgb 13.2 Hct 38.9 MCV 89.3 MCH 30.2 MCHC 33.9 RDW 13.3 Plt Count 345 MPV 8.2 Absolute Neuts (auto) Neutrophils % Lymphocytes % Monocytes % Eosinophils % Basophils % Sodium Potassium Chloride Carbon Dioxide Anion Gap BUN Creatinine Est GFR (CKD-EPI)AfAm Est GFR (CKD-EPI)NonAf POC Glucometer 283 157 Random Glucose Calcium Magnesium Total Bilirubin AST ALT Alkaline Phosphatase Total Protein Albumin 03/30/19 03/30/19 03/30/19 07:00 07:00 14:55 WBC 8.1 RBC 4.05 Hgb 11.9 Hct 36.0 MCV 88.9 MCH 29.5 MCHC 33.1 RDW 13.6 Plt Count 315 MPV 8.7 Absolute Neuts (auto) 6.5 Neutrophils % 80.6 D Lymphocytes % 8.6 D Monocytes % 10.6 H Eosinophils % 0.1 D Basophils % 0.1 Sodium 139 Potassium 4.2 Chloride 103 Carbon Dioxide 29 Anion Gap 7 L BUN 17.0 Creatinine 1.0 Est GFR (CKD-EPI)AfAm 79.19 Est GFR (CKD-EPI)NonAf 68.33 POC Glucometer 335 Random Glucose 177 H Calcium 9.2 Magnesium 1.5 L Total Bilirubin 0.6 AST 15 ALT 18 Alkaline Phosphatase 49 Total Protein 6.5 Albumin 3.3 L Date of Admission:03/28/19 Date of Discharge: 03/30/19 Pre hospital course 83-year-old male with a PMH significant for HTN, HLD, CAD, carotid artery disease, and Type II NIDDM presented to the ED for evaluation of right ankle pain. Patient slipped and fell the day before when descending an outside staircase that was slippery from rain. He went to [facility], had xrays, and was told the ankle was fractured and to follow up with an orthopedist. Patient went to see orthopedist Dr. Anthony in his office. Xrays showed right bimalleolar ankle fracture. Hospital course 83-year-old male with a PMH significant for HTN, HLD, CAD, carotid artery disease, and Type II NIDDM. Admitted for right bimalleolar fracture. Right bimalleolar ankle fracture s/p ORIF on 03/[address] Eisenberg --post-operative course uneventful --perioperative antibiotics complete --pain management: Tylenol and Toradol; no opioids (previous dependency, patient wishes to avoid) --strict non-weight bearing Coronary artery disease Carotid artery disease --Echo: 2019 nl LV function, moderate basal septal hypertrophy, E/A reversal , mod MAC, mild to mod MR, mild TR, mat least mild , severity may be underestimated --US carotids: no obstructive plaque. --continued atenolol, amlodipine, ASA, statin Hypertension --BP stable --continued atenolol, amlodipine Hyperlipidemia --continued Lipitor Type II NIDDM --Novolog sliding scale coverage Hypomagnesemia --repleted Minutes to complete discharge: 35 Discharge Summary Reason For Visit: Fracture of right ankle Current Active Problems Ankle fracture, right (Acute) Condition: Good - Instructions Diet, Activity, Other Instructions: Major Eisenberg MD Orthopedic Surgery and Sports Medicine Post-Op Instruction Sheet - Ankle Surgery 1. Do not bear weight on opperative leg. You may use crutches to ambulate. 2. Use an ice bag (a bag of frozen peas also works well) on the ankle for the first 48 hours after surgery. 30 minutes on, 30 minutes off. 3. Keep your cast clean and dry. 4. To help control pain, you have been prescribed a narcotic pain medication. Take 1-2 tablets every 4 hours as needed for pain. 5. Keeping the leg elevated may help control inflammation. Do this by placing a pillow under the ankle. 6. Start doing quad sets as soon as you are comfortable. This involves straightening the leg while lying flat, and tensing up your quadriceps muscle for a count of 10, then releasing. Do this 10 times, 3 times a day. Also do ankle pumps, which involve pumping your ankle up and down repeatedly, for about 30 seconds at least three times a day. 7. Please call the office to make a follow-up appointment for 10 days after surgery. We will determine if your cast can be removed at that time. 8. Please call the office if there are any questions or concerns. Low-grade fevers are normal for the first 2-3 days. They should be treated with deep breathing, coughing and fluids. Tylenol may be used instead of the pain medication for fevers. If there is a fever over 101.3 F after 48 hours or increased wound drainage, please call the office. Referrals: Major Eisenberg MD [Staff Physician] - Disposition: HOME - Home Medications Comprehensive Discharge Medication List: Ambulatory Orders Amlodipine Besylate [Norvasc -] 10 mg PO DAILY 03/28/19 Atenolol [Tenormin -] 50 mg PO DAILY 03/28/19 Glipizide [Glucotrol -] 10 mg PO BID 03/28/19 Metformin HCl [Glucophage] 1,000 mg PO BID 03/28/19 Pravastatin Sodium [Pravachol] 40 mg PO HS 03/28/19 Sitagliptin Phosphate [Januvia] 100 mg PO DAILY 03/28/19 This patient is new to me today: No Emergency Visit: Yes ED Registration Date: 03/28/19 Care time: The patient presented to the Emergency Department on the above date and was hospitalized for further evaluation of their emergent condition. Critical Care patient: No - Discharge Referral Referred to [facility] Med [facility] No
[2019-03-30] MEDS ORDERED: SENNOSIDES/DOCUSATE COMBO (SENNA PLUS) TABLET (UD) PO SCH (22:00)
--- NOTE | 2019-04-01 19:15 | HP ---
CHIEF COMPLAINT: PCP: HISTORY OF PRESENT ILLNESS: 83-year-old male with a PMH significant for HTN, HLD, CAD, carotid artery disease, and Type II NIDDM. He had a right bimalleolar fracture and is status post right ORIF on 03/29/[address] Eisenberg. Postoperative course was uncomplicated and pain management was with Tylenol and Toradol; no opioids (previous dependency, patient wishesd to avoid).He was seen by physical therapy and he was discharged home on 03/30/2019.He presents today with symptoms of right ankle pain. 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; AVOID HOME MEDICATIONS: Home Medications Medication Instructions Recorded Amlodipine Besylate [Norvasc -] 10 mg PO DAILY 03/28/19 Atenolol [Tenormin -] 50 mg PO DAILY 03/28/19 Glipizide [Glucotrol -] 10 mg PO BID 03/28/19 Metformin HCl [Glucophage] 500 mg PO BID 03/28/19 Pravastatin Sodium [Pravachol] 40 mg PO HS 03/28/19 REVIEW OF SYSTEMS CONSTITUTIONAL: Absent: fever, chills, diaphoresis, generalized weakness, malaise, loss of appetite, weight change HEENT: Absent: rhinorrhea, nasal congestion, throat pain, throat swelling, difficulty swallowing, mouth swelling, ear pain, eye pain, visual changes CARDIOVASCULAR: Absent: chest pain, syncope, palpitations, irregular heart rate, lightheadedness , peripheral edema RESPIRATORY: Absent: cough, shortness of breath, dyspnea with exertion, orthopnea, wheezing, stridor, hemoptysis GASTROINTESTINAL: Absent: abdominal pain, abdominal distension, nausea, vomiting, diarrhea, constipation, melena, hematochezia GENITOURINARY: Absent: dysuria, frequency, urgency, hesitancy, hematuria, flank pain, genital pain MUSCULOSKELETAL: Absent: myalgia, arthralgia, joint swelling, back pain, neck pain SKIN: Absent: rash, itching, pallor HEMATOLOGIC/IMMUNOLOGIC: Absent: easy bleeding, easy bruising, lymphadenopathy, frequent infections ENDOCRINE: Absent: unexplained weight gain, unexplained weight loss, heat intolerance, cold intolerance NEUROLOGIC: Absent: headache, focal weakness or paresthesias, dizziness, unsteady gait, seizure, mental status changes, bladder or bowel incontinence PSYCHIATRIC: Absent: anxiety, depression, suicidal or homicidal ideation, hallucinations. PHYSICAL EXAMINATION GENERAL: Awake, alert, and fully oriented, in no acute distress. HEAD: Normal with no signs of trauma. EYES: Pupils equal, round and reactive to light, extraocular movements intact, sclera anicteric, conjunctiva clear. No lid lag. EARS, NOSE, THROAT: Ears normal, nares patent, oropharynx clear without exudates. Moist mucous membranes. NECK: Normal range of motion, supple without lymphadenopathy, JVD, or masses. LUNGS: Breath sounds equal, clear to auscultation bilaterally. No wheezes, and no crackles. No accessory muscle use. HEART: Regular rate and rhythm, normal S1 and S2 without murmur, rub or gallop. ABDOMEN: Soft, nontender, not distended, normoactive bowel sounds, no guarding, no rebound, no masses. No hepatomegaly or splenomegaly. MUSCULOSKELETAL: Normal range of motion at all joints. No bony deformities or tenderness. No CVA tenderness. UPPER EXTREMITIES: 2+ pulses, warm, well-perfused. No cyanosis. No clubbing. No peripheral edema. LOWER EXTREMITIES: 2+ pulses, warm, well-perfused. No calf tenderness. No peripheral edema. NEUROLOGICAL: Cranial nerves II-XII intact. Normal speech. Normal gait. PSYCHIATRIC: Cooperative. Good eye contact. Appropriate mood and affect. SKIN: Warm, dry, normal turgor, no rashes or lesions noted, normal capillary refill. ASSESSMENT/Plan 83-year-old male with past medical history significant for hypertension, hyperlipidemia, and coronary artery disease, normal ejection fraction, carotid artery disease, and Type II NIDDM who had a right bimalleolar fracture. He is status post right ORIF on 03/29/[address] Eisenberg. Postoperative course was uncomplicated and pain management was with Tylenol and Toradol; no opioids due to previous dependency and patient wished to avoid.He was seen by physical therapy and he was discharged home on 03/30/2019. He presents today with symptoms of right ankle pain. Workup with no acute findings. Patient refused to go home. Right Ankle Pain Workup with right ankle X showed no new fracture and hardware in place. Continue with Tylenol and Toradol prn for pain. PT evaluation Coronary artery disease Echo: 2019 nl LV function, moderate basal septal hypertrophy, E/A reversal, mod MAC, mild to mod MR, mild TR, mat least mild , severity may be underestimated Carotid artery disease --US carotids: no obstructive plaque. --continue with ASA, statin Hypertension --continue atenolol, amlodipine Hyperlipidemia --continue Lipitor Type II NIDDM --continue with metformin and glipizide -
== END 2019-03-30 17:57 | disposition home or self-care (01) | DRG 494 ==
LOC: FER 14:12 → FM/S 15:53
PROVIDERS: ADMIT Internal Medicine; ATTEND Nurse Practitioner Acute Care
PROC: 0QSJ04Z Reposition Right Fibula with Internal Fixation Device, Open Approach (ICD-10-PCS; principal; 2019-03-29 14:00)
DX: S82.841A Displaced bimalleolar fracture of right lower leg, initial encounter for closed fracture (principal); I10 Essential (primary) hypertension; E11.9 Type 2 diabetes mellitus without complications; E78.5 Hyperlipidemia, unspecified; E83.42 Hypomagnesemia; I25.10 Atherosclerotic heart disease of native coronary artery without angina pectoris; W19.XXXA Unspecified fall, initial encounter; Y93.9 Activity, unspecified; Y92.89 Other specified places as the place of occurrence of the external cause; Y99.9 Unspecified external cause status
CPT/HCPCS: 36415; 71045-TC-FY; 73610-TC-RT-FY; 80048; 80053; 81003; 81015; 82550; 82962; 83735; 84484; 85025; 85027; 85610; 93005; 93306-TC; 93880-TC; 94760; 97116-GP; 97162-GP; 99283-25; J0131; J7030

== ENCOUNTER 2019-04-01 17:05 | Inpatient (IN) | payer OTHER, MEDICARE ==
[2019-04-01 17:20] VITALS: BMI 24.3
--- NOTE | 2019-04-01 18:41 | PDOC ---
Documentation entered by Harriet Dickinson SCRIBE, acting as scribe for Jerome Rouse MD. Jerome Rouse MD: This documentation has been prepared by the Teena lam Andrys, SCRIBE, under my direction and personally reviewed by me in its entirety. I confirm that the documentation accurately reflects all work, treatment, procedures, and medical decision making performed by me. History of Present Illness - General Chief Complaint: Injury Stated Complaint: RIGHT ANKLE PAIN History Source: Patient Exam Limitations: No Limitations - History of Present Illness Initial Comments: 04/01/19 17:24 The patient is a 83 year old male with a significant past medical history of HTN , HLD, heart murmur, and NIDDM who presents to the ED, via EMS, s/p fall earlier today. Patient was recently admitted to the hospital for a right ankle fracture, had a right ankle open reduction and internal fixation procedure on , and was discharged on 03/30/19. Patient states he went to sit in a chair earlier today when he slipped downwards. He states he used his right foot to brace himself from the fall. Patient reports a burning like pain throughout his entire right foot and ankle. Denies head injury or loss of consciousness. Denies any other symptoms. Surgeon: Dr. Eisenberg Allergies: Penicillin Past History - Past Medical History Allergies/Adverse Reactions: Allergies Allergy/AdvReac Type Severity Reaction Status Date / Time Penicillins Allergy Severe Hives Verified 04/01/19 17:14 Opioids - Morphine Analogues AdvReac Verified 04/01/19 17:14 Home Medications: Ambulatory Orders Amlodipine Besylate [Norvasc -] 10 mg PO DAILY 03/28/19 Atenolol [Tenormin -] 50 mg PO DAILY 03/28/19 Glipizide [Glucotrol -] 10 mg PO BID 03/28/19 Metformin HCl [Glucophage] 500 mg PO BID 03/28/19 Pravastatin Sodium [Pravachol] 40 mg PO HS 03/28/19 Anemia: No Asthma: No Cancer: No Cardiac Disorders: Yes (MURMUR) CVA: No COPD: No CHF: No Dementia: No Diabetes: Yes (type 2 10-15 years) GI Disorders: No Disorders: No HTN: Yes Hypercholesterolemia: Yes Liver Disease: No Seizures: No Thyroid Disease: No - Surgical History Abdominal Surgery: No Appendectomy: No Cardiac Surgery: Yes (Endarterectomy L(2008)R(2009)) Cholecystectomy: No Lung Surgery: No Neurologic Surgery: No Orthopedic Surgery: No - Immunization History Immunization Up to Date: Yes - Suicide/Smoking/Psychosocial Hx Smoking Status: Yes Smoking History: Former smoker Have you smoked in the past 12 months: No Number of Cigarettes Smoked Daily: 0 Cigars Per Day: 0 Hx Alcohol Use: No Drug/Substance Use Hx: No Substance Use Type: None Hx Substance Use Treatment: No Review of Systems - Review of Systems Able to Perform ROS?: Yes Comments:: 04/01/19 17:24 GENERAL/CONSTITUTIONAL: No fever or chills. No weakness. HEAD, EYES, EARS, NOSE AND THROAT: No change in vision. No ear pain or discharge. No sore throat. CARDIOVASCULAR: No chest pain or shortness of breath. RESPIRATORY: No cough, wheezing, or hemoptysis. GASTROINTESTINAL: No nausea, vomiting, diarrhea or constipation. GENITOURINARY: No dysuria, frequency, or change in urination. MUSCULOSKELETAL: + right foot and ankle pain. No neck or back pain. SKIN: No rash NEUROLOGIC: No headache, vertigo, loss of consciousness, or change in strength/ sensation. ENDOCRINE: No increased thirst. No abnormal weight change. HEMATOLOGIC/LYMPHATIC: No anemia, easy bleeding, or history of blood clots. ALLERGIC/IMMUNOLOGIC: No hives or skin allergy. *Physical Exam - Vital Signs Last Vital Signs Temp Pulse Resp BP Pulse Ox 98.4 F 59 L 18 150/67 98 04/01/19 17:05 04/01/19 17:05 04/01/19 17:05 04/01/19 17:05 04/01/19 17:05 - Physical Exam Comments: 04/01/19 17:24 GENERAL: Awake, alert, and fully oriented, in no acute distress HEAD: No signs of trauma EYES: PERRLA, EOMI, sclera anicteric, conjunctiva clear ENT: Auricles normal inspection, hearing grossly normal, nares patent, oropharynx clear without exudates. Moist mucosa NECK: Normal ROM, supple, no lymphadenopathy, JVD, or masses LUNGS: Breath sounds equal, clear to auscultation bilaterally. No wheezes, and no crackles HEART: Regular rate and rhythm, normal S1 and S2, no murmurs, rubs or gallops ABDOMEN: Soft, nontender, normoactive bowel sounds. No guarding, no rebound. No masses EXTREMITIES: + Pulses intact, exam limited due to cast on right ankle NEUROLOGICAL: Cranial nerves II through XII grossly intact. Normal speech, normal gait SKIN: Warm, Dry, normal turgor, no rashes or lesions noted. ED Treatment Course - ADDITIONAL ORDERS Additional order review: 04/01/19 18:37 X-ray right foot/ankle no new fracture seen, hardware in place Spoke with service supervisor Jocelyn, will admit to observation for inability to walk , patient refusing to go home nad daughter will not take home Pt refused rehab last visit now will go to rehab Needs PT eval. Family in agreement with plan Spoke with Hospitalist ARABELLA Banks, admit to Dr. Larios. - RADIOLOGY Radiology Studies Ordered: Category Date Time Status ANKLE & FOOT-RIGHT* [RAD] Stat Radiology 04/01/19 17:20 Taken *DC/Admit/Observation/Transfer Diagnosis at time of Disposition: Inability to walk Leg pain Qualifiers: Laterality: right Qualified Code(s): M79.604 - Pain in right leg - Discharge Dispostion Condition at time of disposition: Stable Decision to Admit order: Yes - Referrals - Patient Instructions - Post Discharge Activity
[2019-04-01] MEDS ORDERED: ACETAMINOPHEN 325 MG TABLET (FP) PO PRN (18:54)
[2019-04-01] MEDS: ATENOLOL 50 MG TABLET (FP) PO SCH (19:00)
[2019-04-01] MEDS ORDERED: KETOROLAC TROMETHAMINE 10 MG TABLET PO PRN (20:10)
--- NOTE | 2019-04-01 20:10 | HP ---
History&Physical-[facility]) Patient Name: ISAIAS MENDOZA Date of : 1935 Patient Status: Inpatient 2 Date: 04/01/19 Initialization Date: 04/01/19 19:10 CHIEF COMPLAINT:right ankle pain Orthopedic Surgeon: Dr. Eisenberg HISTORY OF PRESENT ILLNESS: 83-year-old male with past medical history significant for hypertension, hyperlipidemia, coronary artery and carotid disease, normal ejection fraction, and Type II NIDDM. He had a right bimalleolar fracture and is status post right ankle surgery with hardware on 03/29/[address] Eisenberg. Postoperative course was uncomplicated and pain management was with Tylenol and Toradol as needed ; no opioids as patient had previous dependency and patient wished to avoid.He was seen by physical therapy and he was discharged home with a walker on 2018. He presents today with symptoms of right ankle pain. Patient reports he fell today while he was ambulating with the walker. He denied LOC or hitting his head. He reports he lives alone and would like to be evaluated for inpatient rehabilitation. Upon evaluation in the ER right ankle xray showed no new fracture and hardware in place. He currently continues to report right ankle pain. He denies fever, chest pain or shortness of breath. 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; AVOID HOME MEDICATIONS: Home Medications Medication Instructions Recorded Amlodipine Besylate [Norvasc -] 10 mg PO DAILY 03/28/19 Atenolol [Tenormin -] 50 mg PO DAILY 03/28/19 Glipizide [Glucotrol -] 10 mg PO BID 03/28/19 Metformin HCl [Glucophage] 500 mg PO BID 03/28/19 Pravastatin Sodium [Pravachol] 40 mg PO HS 03/28/19 REVIEW OF SYSTEMS CONSTITUTIONAL: Absent: fever, chills, diaphoresis, generalized weakness, malaise, loss of appetite, weight change HEENT: Absent: rhinorrhea, nasal congestion, throat pain, throat swelling, difficulty swallowing, mouth swelling, ear pain, eye pain, visual changes CARDIOVASCULAR: Absent: chest pain, syncope, palpitations, irregular heart rate, lightheadedness , peripheral edema RESPIRATORY: Absent: cough, shortness of breath, dyspnea with exertion, orthopnea, wheezing, stridor, hemoptysis GASTROINTESTINAL: Absent: abdominal pain, abdominal distension, nausea, vomiting, diarrhea, constipation, melena, hematochezia GENITOURINARY: Absent: dysuria, frequency, urgency, hesitancy, hematuria, flank pain, genital pain MUSCULOSKELETAL: Absent: myalgia, arthralgia, joint swelling, back pain, neck pain, right ankle pain SKIN: Absent: rash, itching, pallor HEMATOLOGIC/IMMUNOLOGIC: Absent: easy bleeding, easy bruising, lymphadenopathy, frequent infections ENDOCRINE: Absent: unexplained weight gain, unexplained weight loss, heat intolerance, cold intolerance NEUROLOGIC: Absent: headache, focal weakness or paresthesias, dizziness, unsteady gait, seizure, mental status changes, bladder or bowel incontinence PSYCHIATRIC: Absent: anxiety, depression, suicidal or homicidal ideation, hallucinations. PHYSICAL EXAMINATION GENERAL: awake alert and fully oriented no acute distress HEAD: normal with no signs of trauma EYES: pupils equal, round and reactive to light EARS, NOSE, THROAT: ears normal nares patent NECK: normal range of motion supple LUNGS: breath sounds equal and clear to auscultation bilaterally no wheezes and no crackles no accessory muscle use HEART: regular rate and rhythm normal S1 and S2 with murmur, rub or gallop. ABDOMEN: soft nontender not distended normoactive bowel sounds MUSCULOSKELETAL: limited range of motion to RLE UPPER EXTREMITIES: no edema warm on palpation LOWER EXTREMITIES:warm and well-perfused no cyanosis kerlix wrap to RLE NEUROLOGICAL: normal speech no neuro focal deficits PSYCHIATRIC: cooperative good eye contact appropriate mood and affect SKIN: warm dry normal turgor no rashes or lesions noted normal capillary refill ASSESSMENT/Plan 83-year-old male with past medical history significant for hypertension, hyperlipidemia, and coronary artery disease, normal ejection fraction, carotid artery disease, and Type II NIDDM who had a right bimalleolar fracture. He is status post right ankle surgery on 03/29/[address] Eisenberg. Postoperative course was uncomplicated and pain management was with Tylenol and Toradol; no opioids due to previous dependency and patient wished to avoid. He was seen by physical therapy and he was discharged home with a walker on 03/30/2019. He presents today after a fall while he was ambulating with a walker and with symptoms of right ankle pain. Workup with no acute findings. He has no evidence of hypoxia or tachycardia. Patient refused to go home as he had difficulty ambulating with a walker and s/p fall today.He is being admitted for a physical therapy evaluation for recommendations about inpatient rehabilitation placement and to exclude DVT. #1 Right Ankle Pain S/P Right Ankle Surgery 03/29 Workup with right ankle X showed no new fracture and hardware in place, afebrile , no tachycardia or hypoxia, low suspicion for DVT or PE. Check venous doppler of RLE to exclude DVT Continue with lovenox for DVT prophylaxis Continue with Tylenol and Toradol prn for pain control PT evaluation for inability/difficulty with ambulation with walker Orthopedics- Dr. Eisenberg consulted #2 Coronary artery disease Asymptomatic Echo: 2019 nl LV function, moderate basal septal hypertrophy, E/A reversal, mod MAC, mild to mod MR, mild TR, at least mild , severity may be underestimated Continue with aspirin and statin therapy #3 Carotid artery disease US carotids: no obstructive plaque Continue with baby asa and statin #4 Hypertension SBP in 150's likely elevated in setting of pain Continue atenolol and amlodipine Continue to monitor #5 Hyperlipidemia Continue lipitor #6 Type II NIDDM Accucheks before meals and at bedtime Continue with metformin and glipizide DVT Lovenox 30mg daily , TEDS and SCD's FEN low sodium, ADA , check BMP and CBC in am Visit type - Emergency Visit Emergency Visit: Yes ED Registration Date: 04/01/19 Care time: The patient presented to the Emergency Department on the above date and was hospitalized for further evaluation of their emergent condition. - New Patient This patient is new to me today: Yes Date on this admission: 04/01/19 - Critical Care Critical Care patient: No
[2019-04-01] MEDS ORDERED: diphenhydrAMINE HCL 25 MG CAPSULE (FP) PO ONE (20:11)
[2019-04-01] MEDS ORDERED: ENOXAPARIN NA (PORCINE) 30 MG/0.3 ML DISP.SYRIN SQ SCH (20:45)
[2019-04-01] MEDS: amLODIPine BESYLATE 10 MG TABLET (FP) PO SCH (21:07)
[2019-04-01] MEDS ORDERED: ATORVASTATIN CA 10 MG TABLET (FP) PO SCH (22:00)
[2019-04-01] MEDS ORDERED: metFORMIN HCL 500 MG TABLET (FP) PO SCH (22:00)
[2019-04-01] MEDS ORDERED: ENOXAPARIN NA (PORCINE) 40 MG/0.4 ML DISP.SYRIN SQ SCH (22:00)
[2019-04-01] MEDS ORDERED: KETOROLAC TROMETHAMINE 15 MG/ML VIAL IVPUSH PRN (22:20)
[2019-04-01] MEDS ORDERED: traMADol HCL 50 MG TABLET PO ONE (23:40)
[2019-04-02] MEDS ORDERED: glipiZIDE 5 MG TABLET (FP) ONE (05:53)
[2019-04-02] MEDS ORDERED: metFORMIN HCL 500 MG TABLET (FP) PO SCH ×2 (07:00)
[2019-04-02] MEDS ORDERED: INSULIN SLIDING SCALE (NOVOLOG) 1 VIAL SQ SCH (07:00)
[2019-04-02] MEDS ORDERED: glipiZIDE 10 MG TABLET (FP) PO SCH (07:00)
[2019-04-02 07:47] LABS: HEMATOCRIT 37.6 % (35.4-49); HEMOGLOBIN 12.1 GM/dl (11.7-16.9); MCH 29.4 pg (25.7-33.7); MCHC 32.3 g/dl (32.0-35.9); MEAN CELL VOLUME 90.9 fl (80-96); MEAN PLT VOLUME 8.5 fl (7.5-11.1); PLATELET COUNT 351 K/MM3 (134-434); RBC 4.13 M/mm3 (4.00-5.60); RDW 13.4 % (11.9-15.9); WHITE BLOOD COUNT 7.3 K/mm3 (4.0-10.8)
[2019-04-02 07:59] LABS: CALCIUM 9.1 mg/dl (8.5-10); CREATININE 0.8 mg/dl (0.55-1.3); POTASSIUM 4.2 mmol/L (3.5-5.1)
[2019-04-02] MEDS ORDERED: glipiZIDE 5 MG TABLET (FP) PO SCH (09:07)
[2019-04-02 09:19] VITALS: TEMP 97.6
[2019-04-02] MEDS: amLODIPine BESYLATE 10 MG TABLET (FP) PO SCH (09:44)
[2019-04-02] MEDS: ATENOLOL 50 MG TABLET (FP) PO SCH (09:44)
[2019-04-02] MEDS ORDERED: ASPIRIN COATED 81 MG TABLET.EC PO SCH (10:00)
[2019-04-02] MEDS ORDERED: ENOXAPARIN NA (PORCINE) 40 MG/0.4 ML DISP.SYRIN SQ SCH (10:00)
--- NOTE | 2019-04-02 12:03 | DS ---
Physical Exam: SUBJECTIVE: Patient seen and examined OBJECTIVE: Vital Signs Period Temp Pulse Resp BP Sys/Ruiz Pulse Ox Last 24 Hr 97.5 F-98.4 F 59-78 16-18 120-167/51-90 94-98 PHYSICAL EXAM GENERAL: The patient is awake, alert, and fully oriented, in no acute distress. HEAD: Normal with no signs of trauma. EYES: PERRL, extraocular movements intact, sclera anicteric, conjunctiva clear. ENT: Ears normal, nares patent, oropharynx clear without exudates, moist mucous membranes. NECK: Trachea midline, full range of motion, supple. LUNGS: Breath sounds equal, clear to auscultation bilaterally, no wheezes, no crackles, no accessory muscle use. HEART: Regular rate and rhythm, S1, S2 without murmur, rub or gallop. ABDOMEN: Soft, nontender, nondistended, normoactive bowel sounds, no guarding, no rebound, no hepatosplenomegaly, no masses. EXTREMITIES: 2+ pulses, warm, well-perfused, no edema. NEUROLOGICAL: Cranial nerves II through XII grossly intact. Normal speech, gait not observed. PSYCH: Normal mood, normal affect. SKIN: Warm, dry, normal turgor, no rashes or lesions noted. LABS Laboratory Results - last 24 hr 04/01/19 04/02/19 04/02/19 22:23 05:46 07:05 WBC 7.3 RBC 4.13 Hgb 12.1 Hct 37.6 MCV 90.9 MCH 29.4 MCHC 32.3 RDW 13.4 Plt Count 351 MPV 8.5 Sodium Potassium Chloride Carbon Dioxide Anion Gap BUN Creatinine Est GFR (CKD-EPI)AfAm Est GFR (CKD-EPI)NonAf POC Glucometer 181 162 Random Glucose Calcium 04/02/19 07:05 WBC RBC Hgb Hct MCV MCH MCHC RDW Plt Count MPV Sodium 141 Potassium 4.2 Chloride 106 Carbon Dioxide 25 Anion Gap 10 BUN 17.0 Creatinine 0.8 Est GFR (CKD-EPI)AfAm 94.41 Est GFR (CKD-EPI)NonAf 81.46 POC Glucometer Random Glucose 147 H Calcium 9.1 HOSPITAL COURSE: Date of Admission:04/01/19 Date of Discharge: 04/02/19 Discharge Summary Reason For Visit: FRACTURE OF RIGHT ANKLE Current Active Problems Pain of lower extremity (Acute) Unable to walk (Acute) Condition: Stable - Instructions - Home Medications Comprehensive Discharge Medication List: Ambulatory Orders Amlodipine Besylate [Norvasc -] 10 mg PO DAILY 03/28/19 Atenolol [Tenormin -] 50 mg PO DAILY 03/28/19 Glipizide [Glucotrol -] 10 mg PO BID 03/28/19 Metformin HCl [Glucophage] 1,000 mg PO BID 03/28/19 Pravastatin Sodium [Pravachol] 40 mg PO HS 03/28/19 Aspirin [Aspirin EC] 81 mg PO DAILY 04/01/19
[2019-04-02 12:44] VITALS: BP 132/51; PULSE 61
== END 2019-04-02 14:09 | DRG 556 ==
LOC: FER 17:05 → FM/S 18:39
PROVIDERS: ATTEND Nurse Practitioner Acute Care
DX: M79.661 Pain in right lower leg (principal); I10 Essential (primary) hypertension; E11.9 Type 2 diabetes mellitus without complications; I25.10 Atherosclerotic heart disease of native coronary artery without angina pectoris; E78.5 Hyperlipidemia, unspecified
CPT/HCPCS: 36415; 73610-TC-RT-FY; 73630-TC-RT-FY; 80048; 82962; 85027; 93971-TC; 97116-GP; 97161-GP; 99282-25

== ENCOUNTER 2019-04-13 12:00 | Inpatient (IN) | payer OTHER, MEDICARE ==
[2019-04-13] MEDS ORDERED: FAMOTIDINE 20 MG/50 ML IVPB 20 MG in PREMIX 50 IVPB ONE (12:44)
[2019-04-13] MEDS ORDERED: SODIUM CHLORIDE 1,000 ML IV ONE (12:44)
[2019-04-13] MEDS ORDERED: MAG HYDROX/AL HYDROX/SIMETH -MYLANTA- ORAL SUSPENSION PO ONE (12:44)
[2019-04-13] MEDS ORDERED: ONDANSETRON 4 MG/2 ML VIAL IVPB ONE (12:45)
--- NOTE | 2019-04-13 12:45 | PDOC ---
History of Present Illness - General Chief Complaint: Coffee Ground Emesis Stated Complaint: VOMITTED DARK SECRETIONS Time Seen by Provider: 04/13/19 12:28 History Source: Patient Exam Limitations: No Limitations - History of Present Illness Travel History: No Initial Comments: 04/13/19 12:46 Pt is a 83y M hx of htn, hl, niddm, presents with epigastric pain and vomiting x 3. Pt notes that he was feeling well yesterday morning, in the afternoon, he went to PT and started to feel generally weak without any asociated cp, sob, palpitations, diaphoresis, n/v.. he had some orange juice, then he went back to his room and had some rachel malorie and vomited that was dark in color. Pt endorses some persistent vomiting x 3 that was dark in color as well as a dark colored, well formed bm in additoin to burning epigastric pain that radiates up to his chest. Pt notse the pain seesm to be worse when he is laying down vs when he is sitting up. denies any exertional cp, diaphorsis, chest pain, back pain, nyumnes/tingling/weakness, sob, other abd pain. pt no lovenox while at rehab Social: Pt denies any cigarette or drug use. pt has remote hx of etoh use family hx: non contributory Past History - Past Medical History Allergies/Adverse Reactions: Allergies Allergy/AdvReac Type Severity Reaction Status Date / Time Penicillins Allergy Severe Hives Verified 04/13/19 12:02 Opioids - Morphine Analogues AdvReac Verified 04/13/19 12:02 Home Medications: Ambulatory Orders Aspirin [Aspirin EC] 81 mg PO DAILY 04/13/19 Enoxaparin [Lovenox -] 40 mg SQ DAILY 04/13/19 Glipizide [Glucotrol] 10 mg PO BID 04/13/19 Metformin HCl [Glucophage] 1,000 mg PO BID 04/13/19 Oxycodone HCl 5 mg PO PRN 04/13/19 Anemia: No Asthma: No Cancer: No Cardiac Disorders: Yes (MURMUR) CVA: No COPD: No CHF: No Dementia: No Diabetes: Yes (type 2 10-15 years) GI Disorders: No Disorders: No HTN: Yes Hypercholesterolemia: Yes Liver Disease: No Seizures: No Thyroid Disease: No - Surgical History Abdominal Surgery: No Appendectomy: No Cardiac Surgery: Yes (Endarterectomy L(2008)R(2009)) Cholecystectomy: No Lung Surgery: No Neurologic Surgery: No Orthopedic Surgery: No - Immunization History Immunization Up to Date: Yes - Suicide/Smoking/Psychosocial Hx Smoking Status: Yes Smoking History: Former smoker Have you smoked in the past 12 months: No Number of Cigarettes Smoked Daily: 0 If you are a former smoker, when did you quit?: 40 YEARS Cigars Per Day: 0 Information on smoking cessation initiated: No Hx Alcohol Use: No Drug/Substance Use Hx: No Substance Use Type: None Hx Substance Use Treatment: No Review of Systems - Review of Systems Able to Perform ROS?: Yes Comments:: 04/13/19 12:49 Constitutional - no reported Fever, Chills, HEENT: no reported vision changes, sore throat Respiratory: no reported cough, sob, hemoptysis Cardiac: no reported chest pain, palpitations, light headedness, leg swelling Abd/GI: +burning epigastric abd pain, nausea, vomiting, dark stoolno reported blood per rectum, melena, diarrhea : no reported dysuria, frequency, discharge Musculskelatal - no reported back pain, joint swelling skin - no reported bruising, erythema, rash neurological: no reported headache, numbness, focal weakness, tingling, ataxia, hematologic: no reported easy bruising, easy bleeding GENERAL: The patient is awake, alert, and fully oriented, Nontoxic - in no acute distress. HEAD: Normocephalic, atraumatic. EYES: extraocular movements intact, sclera anicteric, conjunctiva clear. ENT: Normal voice, Moist mucous membranes. NECK: Normal range of motion, supple LUNGS: Breath sounds equal, clear to auscultation bilaterally. No wheezes, no rhonchi, no rales. HEART: Regular rate and rhythm, normal S1 and S2 without murmur, rub or gallop. ABDOMEN: Soft, nontender, normoactive bowel sounds. No guarding, no rebound. No CVA tenderness RECTAL: Dark stool in rectal vault EXTREMITIES: Normal range of motion, no edema. No clubbing or cyanosis. No cords, erythema, or tenderness. NEUROLOGICAL: No facial assymetry, Normal speech, PSYCH: Normal mood, normal affect. SKIN: Warm, Dry, normal turgor, *Physical Exam - Vital Signs Last Vital Signs Temp Pulse Resp BP Pulse Ox 97.8 F 68 16 129/62 97 04/13/19 12:02 04/13/19 12:02 04/13/19 12:02 04/13/19 12:02 04/13/19 12:02 Heart Score/ECG Review - ECG Impressions Comment:: 04/13/19 12:55 Twelve-lead EKG was performed and reviewed by me. There is normal sinus rhythm with a normal rate. rate of 65 The axis is normal. The intervals are normal. abnormal r wave progression ED Treatment Course - LABORATORY CBC & Chemistry Diagram: 04/13/19 13:50 04/13/19 13:50 - RADIOLOGY Radiology Studies Ordered: Category Date Time Status CHEST PA & LAT [RAD] Stat Radiology 04/13/19 12:44 Ordered Medical Decision Making - Medical Decision Making 04/13/19 12:50 ddx - consider PUD, acid reflux, acs, pancreatiitis stool was dark colored- stool guaiac sent to r/o melena will ck cbc, cmp, lipase, troponin cxr, ekg pepcid/maalox fo rsymptmoatic releif 04/13/19 14:32 pts guaiac + hbg dropped by 3 points from previous from 12-9 from earlier this month - will continue to trend will admit for suspected GIB and for GI consultation will start pronix gtt 04/13/19 14:47 04/13/19 14:59 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 Admitting physician has assumed care for the patient, will follow all pending diagnostics and will complete the evaluation and treatment. *DC/Admit/Observation/Transfer Diagnosis at time of Disposition: GI bleed Qualifiers: GI bleed type/associated pathology: melena Qualified Code(s): K92.1 - Melena - Discharge Dispostion Condition at time of disposition: Guarded Decision to Admit order: Yes - Referrals Referrals: Leandro Hinojosa MD [Primary Care Provider] - - Patient Instructions - Post Discharge Activity
[2019-04-13] MEDS ORDERED: PANTOPRAZOLE SODIUM 40 MG VIAL IVPUSH ONE (12:55)
[2019-04-13] MEDS ORDERED: MAG HYDROX/AL HYDROX/SIMETH 30 ML UNIT-DOSE CUP ONE (13:10)
[2019-04-13] MEDS ORDERED: FAMOTIDINE 20 MG/50 ML IVPB 20 MG/50 ML MG IVPB ONE (13:10)
[2019-04-13] MEDS ORDERED: ONDANSETRON 4 MG/2 ML VIAL ONE (13:10)
[2019-04-13] MEDS ORDERED: PANTOPRAZOLE SODIUM 40 MG VIAL ONE ×2 (13:10→14:52)
[2019-04-13 14:02] LABS: BASO % 1.1 % (0-2.0); HEMATOCRIT 28.5 % (35.4-49); HEMOGLOBIN 9.3 GM/dl (11.7-16.9); MCH 29.3 pg (25.7-33.7); MCHC 32.8 g/dl (32.0-35.9); MEAN CELL VOLUME 89.4 fl (80-96); MEAN PLT VOLUME 8.6 fl (7.5-11.1); MONO % 4.3 % (3.8-10.2); NEUT % 87.6 % (42.8-82.8); PLATELET COUNT 379 K/MM3 (134-434); RBC 3.19 M/mm3 (4.00-5.60); RDW 14.4 % (11.9-15.9); WHITE BLOOD COUNT 16.9 K/mm3 (4.0-10.8)
[2019-04-13 14:12] LABS: ALBUMIN 3.3 g/dl (3.4-5.0); BILIRUBIN,TOTAL 0.7 mg/dl (0.2-1); CALCIUM 9.2 mg/dl (8.5-10); CREATININE 1.5 mg/dl (0.55-1.3); POTASSIUM 5.9 mmol/L (3.5-5.1); TOT PROT 6.1 g/dl (6.4-8.2)
[2019-04-13] MEDS ORDERED: PANTOPRAZOLE SODIUM 80 MG in SODIUM CHLORIDE 100 ML IVPB SCH ×2 (14:45→15:45)
[2019-04-13] MEDS ORDERED: SODIUM CHLORIDE 1,000 ML IV SCH ×2 (15:45→20:17)
--- NOTE | 2019-04-13 15:45 | HP ---
CHIEF COMPLAINT: Coffee ground emesis, melena PCP: Followed at the [facility] HISTORY OF PRESENT ILLNESS: 83-year-old male with a PMH significant for HTN, HLD, CAD, carotid artery disease, and Type II NIDDM. Presented to the ED today for evaluation of coffe- ground emesis and melena since 1:00pm yesterday afternoon. Patient is presently at a rehab facility following ORIF of ankle fracture on 03/29/19. While there he has been given a daily ASA 81mg and daily enoxaparin injections. Yesterday patient began feeling weak. He had some orange juice and rachel malorie, and then vomited a large amount of what he describes as "black" fluid. This was sudden, no previous episodes. Shortly afterward patient had a loose bowel movement that he also describes as "black." Since then he has three more episodes of dark fluid vomit. He has a burning epigastric pain that radiates up into his chest, worse when lying down. Patient denies fever, sweats, chills. Denies SOB, chest pain, palpitations, diaphoresis. 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 ; wishes to avoid all narcotic medication Family History: Mother 77 PNA; father 52 ID; 1/2 brother 78 stomach cancer; sister 77 spesis; 1 daughter age 65 with colon cancer; 3 other children a&w Allergies Penicillins Allergy (Severe, Verified 04/13/19 12:02) Hives Opioids - Morphine Analogues Adverse Reaction (Verified 04/13/19 12:02) DEVELOPED DEPENDENCY ON OXYCODONE IN 2013 IN CONNECTION WITH BACK SURGERY; AVOID HOME MEDICATIONS: Home Medications Medication Instructions Recorded Aspirin [Aspirin EC] 81 mg PO DAILY 04/13/19 Enoxaparin [Lovenox -] 40 mg SQ DAILY 04/13/19 Glipizide [Glucotrol] 10 mg PO BID 04/13/19 Insulin Sliding Scale [Novolog 0 units SQ BIDAC 04/13/19 Vial Sliding Scale -] Metformin HCl [Glucophage] 1,000 mg PO BID 04/13/19 Oxycodone HCl 5 mg PO PRN 04/13/19 REVIEW OF SYSTEMS CONSTITUTIONAL: Absent: fever, chills, diaphoresis, generalized weakness, malaise, loss of appetite, weight change HEENT: Absent: rhinorrhea, nasal congestion, throat pain, throat swelling, difficulty swallowing, mouth swelling, ear pain, eye pain, visual changes CARDIOVASCULAR: Absent: chest pain, syncope, palpitations, irregular heart rate, lightheadedness , peripheral edema RESPIRATORY: Absent: cough, shortness of breath, dyspnea with exertion, orthopnea, wheezing, stridor, hemoptysis GASTROINTESTINAL: +nausea, vomiting, melena Absent: abdominal pain, abdominal distension, diarrhea, constipation, hematochezia GENITOURINARY: Absent: dysuria, frequency, urgency, hesitancy, hematuria, flank pain, genital pain MUSCULOSKELETAL: Absent: myalgia, arthralgia, joint swelling, back pain, neck pain SKIN: Absent: rash, itching, pallor HEMATOLOGIC/IMMUNOLOGIC: Absent: easy bleeding, easy bruising, lymphadenopathy, frequent infections ENDOCRINE: Absent: unexplained weight gain, unexplained weight loss, heat intolerance, cold intolerance NEUROLOGIC: Absent: headache, focal weakness or paresthesias, dizziness, unsteady gait, seizure, mental status changes, bladder or bowel incontinence PSYCHIATRIC: Absent: anxiety, depression, suicidal or homicidal ideation, hallucinations. PHYSICAL EXAMINATION Vital Signs - 24 hr 04/13/19 04/13/19 12:02 15:09 Temperature 97.8 F Pulse Rate 68 Pulse Rate [ 64 Apical] Respiratory 16 16 Rate Blood Pressure 129/62 Blood Pressure 116/43 L [Right Arm] O2 Sat by Pulse 97 Oximetry (%) GENERAL: Awake, alert, and fully oriented, in no acute distress. Pale, weak- appearing. HEAD: Normal with no signs of trauma. EYES: Pupils equal, round and reactive to light, extraocular movements intact, sclera anicteric. Pale conjunctiva. EARS, NOSE, THROAT: Ears normal, nares patent, oropharynx clear without exudates. Dry mucous membranes. NECK: Normal range of motion, supple without lymphadenopathy, JVD, or masses. LUNGS: Breath sounds equal, clear to auscultation bilaterally. No wheezes, and no crackles. No accessory muscle use. HEART: Regular rate and rhythm, S1 and S2 ABDOMEN: Soft, nontender, not distended, normoactive bowel sounds, no guarding, no rebound tenderness. MUSCULOSKELETAL: Normal range of motion at all joints. No bony deformities or tenderness. No CVA tenderness. UPPER EXTREMITIES: 2+ pulses, warm, well-perfused. No cyanosis. No clubbing. No peripheral edema. LOWER EXTREMITIES: 2+ pulses, warm, well-perfused. No calf tenderness. No peripheral edema. NEUROLOGICAL: Cranial nerves II-XII intact. Normal speech. Laboratory Results - last 24 hr 04/13/19 04/13/19 04/13/19 13:50 13:50 13:50 WBC RBC Hgb Hct MCV MCH MCHC RDW Plt Count MPV Absolute Neuts (auto) Neutrophils % Lymphocytes % Monocytes % Eosinophils % Basophils % Sodium 132 L Potassium 5.9 H Chloride 105 Carbon Dioxide 16 L Anion Gap 11 BUN 79.0 H D Creatinine 1.5 H Est GFR (CKD-EPI)AfAm 48.50 Est GFR (CKD-EPI)NonAf 41.85 Random Glucose 210 H Calcium 9.2 Total Bilirubin 0.7 AST 23 ALT 29 Alkaline Phosphatase 53 Creatine Kinase 27 Troponin I < 0.03 Total Protein 6.1 L Albumin 3.3 L Lipase Stool Occult Blood Positive 04/13/19 04/13/19 13:50 13:50 WBC 16.9 H RBC 3.19 L Hgb 9.3 L Hct 28.5 L D MCV 89.4 MCH 29.3 MCHC 32.8 RDW 14.4 Plt Count 379 MPV 8.6 Absolute Neuts (auto) 14.8 Neutrophils % 87.6 H Lymphocytes % 7.0 L Monocytes % 4.3 Eosinophils % 0.0 D Basophils % 1.1 D Sodium Potassium Chloride Carbon Dioxide Anion Gap BUN Creatinine Est GFR (CKD-EPI)AfAm Est GFR (CKD-EPI)NonAf Random Glucose Calcium Total Bilirubin AST ALT Alkaline Phosphatase Creatine Kinase Troponin I Total Protein Albumin Lipase 125 Stool Occult Blood ASSESSMENT/PLANd 83-year-old male with a PMH significant for HTN, HLD, CAD, carotid artery disease, and Type II NIDDM, s/p ORIF of right bimalleolar ankle fracture on 03/29. ER course was notable for: (1) Hgb 9.3 (was 12.1 on 04/02/19); occult stool positive (2) Na 132, K 5.9 (3) BUN/Cr 79/17 (was 17/0.8 on 04/02/19) GI bleed --Hgb dropped 3 grams since 04/02; BUN very elevated; coffee ground emesis; melena; occult stool positive --type and screen done --2U ordered standby --repeat cbc as soon as patient arrives at [facility] --IV fluids running --protonix drip --maintain 2-line IV access --stat GI consult Coronary artery disease Carotid artery disease --hold ASA --Echo: 2019 nl LV function, moderate basal septal hypertrophy, E/A reversal , mod MAC, mild to mod MR, mild TR, mat least mild , severity may be underestimated --US carotids: no obstructive plaque. Hypertension --BP stable --need to verify meds patient came on from SNF Hyperlipidemia --hold PO meds Type II NIDDM --Novolog sliding scale coverage NPO DVT prophylaxis: no chemical prophylaxis due to bleeding; SCDs Dispo: transfer to [facility], no GI coverage at [facility] at this time. Full code. Visit type - Emergency Visit Emergency Visit: Yes Care time: The patient presented to the Emergency Department on the above date and was hospitalized for further evaluation of their emergent condition. - New Patient This patient is new to me today: Yes Date on this admission: 04/13/19 - Critical Care Critical Care patient: Yes Total Critical Care Time (in minutes): 45 Critical Care Statement: The care of this patient involved high complexity decision making to prevent further life threatening deterioration of the patient 's condition and/or to evaluate & treat vital organ system(s) failure or risk of failure.
[2019-04-13] MEDS ORDERED: SODIUM CHLORIDE 1,000 ML IV STA ×2 (16:15→20:17)
[2019-04-13] MEDS ORDERED: INSULIN SLIDING SCALE (NOVOLOG) 1 VIAL SQ SCH (16:30)
[2019-04-13 16:54] LABS: INR 1.34 (0.82-1.09); PROTHROMBIN TIME (PATIENT) 14.9 SEC (10.2-13.0)
[2019-04-13 18:36] VITALS: BMI 24.3
[2019-04-13 19:03] LABS: BASO % 0.5 % (0-2.0); EOS % 0.1 % (0-4.5); HEMATOCRIT 22.4 % (35.4-49); HEMOGLOBIN 7.2 GM/dL (11.7-16.9); LYMPH % 7.6 % (8-40); MCH 28.8 pg (25.7-33.7); MEAN CELL VOLUME 90.2 fl (80-96); MEAN PLT VOLUME 9.1 fl (7.5-11.1); NEUT % 84.8 % (42.8-82.8); PLATELET COUNT 306 K/MM3 (134-434); RBC 2.48 M/mm3 (4.00-5.60); RDW 14.8 % (11.9-15.9); WHITE BLOOD COUNT 14.4 K/mm3 (4.0-10.0)
--- NOTE | 2019-04-13 19:06 | CON.GI ---
Consult Consult Specialty:: GI Referred by:: Corine Brown NP Reason for Consultation:: GI bleed - History of Present Illness Chief Complaint: Coffee grounds vomiting at lunchtime today. History of Present Illness: 83 y.o. M with recent ankle fracture, on long-term low dose aspirin (no history of vascular disease), on enoxaparin at rehab center. Developed coffee grounds emesis today at lunchtime. Brought to ER, stools guaiac positive, BUN 79 (had been <20 earlier this month), Hgb down by 3 gms from values at time of fracture. No hx of GI bleed, ulcer, endoscopy. - History Source History Provided By: Patient, Medical Record Limitations to Obtaining History: No Limitations - Past Surgical History Additional Surgical History: ankle fracture repair - Alcohol/Substance Use Hx Alcohol Use: No - Smoking History Smoking history: Former smoker Have you smoked in the past 12 months: No Aproximately how many cigarettes per day: 0 If you are a former smoker, when did you quit?: 40 YEARS Home Medications - Allergies Allergies/Adverse Reactions: Allergies Allergy/AdvReac Type Severity Reaction Status Date / Time Penicillins Allergy Severe Hives Verified 04/13/19 12:02 Opioids - Morphine Analogues AdvReac Verified 04/13/19 12:02 - Home Medications Home Medications: Ambulatory Orders Aspirin [Aspirin EC] 81 mg PO DAILY 04/13/19 Enoxaparin [Lovenox -] 40 mg SQ DAILY 04/13/19 Glipizide [Glucotrol] 10 mg PO BID 04/13/19 Insulin Sliding Scale [Novolog Vial Sliding Scale -] 0 units SQ BIDAC 04/13/19 Metformin HCl [Glucophage] 1,000 mg PO BID 04/13/19 Oxycodone HCl 5 mg PO PRN 04/13/19 Physical Exam-GI Vital Signs: Vital Signs Temperature 98.2 F 04/13/19 18:36 Pulse Rate 66 04/13/19 18:36 Respiratory Rate 16 04/13/19 18:36 Blood Pressure 105/48 L 04/13/19 18:36 O2 Sat by Pulse Oximetry (%) 97 04/13/19 12:02 Constitutional: Yes: Well Nourished ...Rectal Exam: Yes: Deferred Extremities: Yes: Other (R ankle and foot in boot) Labs: INR, PTT INR 1.34 (0.82-1.09) H 04/13/19 15:50 Problem List - Problems (1) GI bleed Code(s): K92.2 - GASTROINTESTINAL HEMORRHAGE, UNSPECIFIED Qualifiers: GI bleed type/associated pathology: melena Qualified Code(s): K92.1 - Melena Assessment/Plan Clearly patient had an UGI bleed. He appears quite stable, has had no further bleeding, and is thirsty. Will allow ice chips, sips of water. Agree with IV PPI , monitor H/H. Will likely be able to switch to oral PPI. Advised patient that low dose aspirin is no longer advised for primary prophylaxis of heart disease in persons over 70. Will probably have EGD early next week.
--- NOTE | 2019-04-13 19:10 | HOSP ---
Subjective - Review of Symptoms Gastrointestinal: Yes: Nausea, Abdominal Pain, Melena Physical Examination Vital Signs: Vital Signs Temperature 98.2 F 04/13/19 18:36 Pulse Rate 66 04/13/19 18:36 Respiratory Rate 16 04/13/19 18:36 Blood Pressure 105/48 L 04/13/19 18:36 O2 Sat by Pulse Oximetry (%) 97 04/13/19 12:02 Constitutional: Yes: Well Nourished, No Distress, Calm Eyes: Yes: WNL, Conjunctiva Clear, EOM Intact HENT: Yes: WNL, Atraumatic, Normocephalic Neck: Yes: WNL, Supple, Trachea Midline Cardiovascular: Yes: WNL, Regular Rate and Rhythm, Bradycardia (HR 60s) Respiratory: Yes: WNL, Regular, CTA Bilaterally Gastrointestinal: Yes: WNL, Normal Bowel Sounds, Soft Renal/: Yes: WNL Breast(s): Yes: WNL Musculoskeletal: Yes: WNL Extremities: Yes: WNL Edema: No Peripheral Pulses: Left Radial: 2+, Right Radial: 2+, Left Doralis Pedis: 2+, Right Dorsalis Pedis: 2+, Left Femoral: 2+, Right Femoral: 2+ Integumentary: Yes: WNL Neurological: Yes: WNL, Alert, Oriented ...Motor Strength: WNL Psychiatric: Yes: WNL, Alert, Oriented Hospitalist Encounter Assessment: Patient transfered from [facility] for GI Bleed for further managment. In no distress on arrival-hemodynamically stable. Labs sent. Will trend cbc q8 hrs. Type and screen for [address] Real will see this patient tonight. Will hold any anticoagulation and continue IVF and maintain NPO until further GI evaluation. Critical Care Total Critical Care Time (in minutes): 15
[2019-04-13 19:30] LABS: INR 1.23 (0.83-1.09); PROTHROMBIN TIME (PATIENT) 14.5 SEC (9.7-13.0)
[2019-04-13 19:30] LABS: ALBUMIN 2.5 g/dl (3.4-5.0); BILIRUBIN,TOTAL 0.2 mg/dL (0.2-1); BLOOD UREA NITROGEN 72.9 mg/dL (7-18); CALCIUM 8.3 mg/dL (8.5-10.1); CREATININE 1.4 mg/dL (0.55-1.3); MAGNESIUM 1.7 mg/dL (1.8-2.4); POTASSIUM 5.5 mmol/L (3.5-5.1)
[2019-04-13] MEDS ORDERED: ACETAMINOPHEN 1000 MG/100 ML VIAL (NON FORMULARY) IVPB ONE (20:54)
[2019-04-13] MEDS: INSULIN SLIDING SCALE (NOVOLOG) 1 VIAL SQ SCH (23:05)
[2019-04-14 01:27] LABS: BASO % 0.4 % (0-2.0); EOS % 0.3 % (0-4.5); HEMATOCRIT 23.9 % (35.4-49); HEMOGLOBIN 7.7 GM/dL (11.7-16.9); LYMPH % 9.5 % (8-40); MCH 28.1 pg (25.7-33.7); MCHC 32.4 g/dl (32.0-35.9); MEAN CELL VOLUME 86.8 fl (80-96); MEAN PLT VOLUME 8.6 fl (7.5-11.1); MONO % 6.9 % (3.8-10.2); NEUT % 82.9 % (42.8-82.8); PLATELET COUNT 273 K/MM3 (134-434); RBC 2.76 M/mm3 (4.00-5.60); RDW 16.1 % (11.9-15.9); WHITE BLOOD COUNT 13.5 K/mm3 (4.0-10.0)
[2019-04-14] MEDS ORDERED: PANTOPRAZOLE SODIUM 80 MG in SODIUM CHLORIDE 100 ML IVPB SCH (01:45)
[2019-04-14] MEDS: INSULIN SLIDING SCALE (NOVOLOG) 1 VIAL SQ SCH ×5 (06:38→20:59)
[2019-04-14 08:10] LABS: BASO % 0.7 % (0-2.0); EOS % 1.2 % (0-4.5); HEMATOCRIT 27.2 % (35.4-49); HEMOGLOBIN 9.3 GM/dL (11.7-16.9); LYMPH % 7.2 % (8-40); MCH 29.6 pg (25.7-33.7); MCHC 34.1 g/dl (32.0-35.9); MEAN CELL VOLUME 86.9 fl (80-96); MEAN PLT VOLUME 8.5 fl (7.5-11.1); MONO % 8.6 % (3.8-10.2); NEUT % 82.3 % (42.8-82.8); PLATELET COUNT 245 K/MM3 (134-434); RBC 3.13 M/mm3 (4.00-5.60); RDW 16.1 % (11.9-15.9); WHITE BLOOD COUNT 10.1 K/mm3 (4.0-10.0)
--- NOTE | 2019-04-14 08:17 | PN ---
Progress Note, Physician Chief Complaint: Pt upset about being in hospital History of Present Illness: 83 y.o. M with recent ankle fracture, on long-term low dose aspirin (no history of vascular disease), on enoxaparin at rehab center. Developed coffee grounds emesis today at lunchtime. Brought to ER, stools guaiac positive, BUN 79 (had been <20 earlier this month), Hgb down by 3 gms from values at time of fracture. No hx of GI bleed, ulcer, endoscopy. 83-year-old male with a PMH significant for HTN, HLD, CAD, carotid artery disease, and Type II NIDDM. Presented to the ED today for evaluation of coffe- ground emesis and melena since 1:00pm yesterday afternoon. Patient is presently at a rehab facility following ORIF of ankle fracture on 03/29/19. While there he has been given a daily ASA 81mg and daily enoxaparin injections. Yesterday patient began feeling weak. He had some orange juice and rachel malorie, and then vomited a large amount of what he describes as "black" fluid. This was sudden, no previous episodes. Shortly afterward patient had a loose bowel movement that he also describes as "black." Since then he has three more episodes of dark fluid vomit. He has a burning epigastric pain that radiates up into his chest, worse when lying down. Patient denies fever, sweats, chills. Denies SOB, chest pain, palpitations, diaphoresis. - Current Medication List Current Medications: Active Medications Sodium Chloride (Normal Saline -) 1,000 mls @ 100 mls/hr IV ASDIR [facility] Last Admin: 04/13/19 21:21 Dose: 100 mls/hr Pantoprazole Sodium 80 mg/ (Sodium Chloride) 100 mls @ 10 mls/hr IVPB Q10H [facility] Last Admin: 04/14/19 01:30 Dose: 10 mls/hr Insulin Aspart (Novolog Vial Sliding Scale -) 1 vial SQ ACHS [facility]; Protocol Last Admin: 04/14/19 06:38 Dose: Not Given - Objective Vital Signs: Vital Signs Temperature 97.8 F 04/14/19 06:00 Pulse Rate 63 04/14/19 06:00 Respiratory Rate 20 04/14/19 06:00 Blood Pressure 129/63 04/14/19 06:00 O2 Sat by Pulse Oximetry (%) 99 04/13/19 21:00 Constitutional: Yes: Well Nourished, No Distress, Calm Eyes: Yes: WNL, Conjunctiva Clear, EOM Intact HENT: Yes: WNL, Atraumatic, Normocephalic Neck: Yes: WNL, Supple, Trachea Midline Cardiovascular: Yes: WNL, Regular Rate and Rhythm Respiratory: Yes: WNL, Regular, CTA Bilaterally Gastrointestinal: Yes: WNL, Normal Bowel Sounds, Soft ...Rectal Exam: Yes: Deferred Genitourinary: Yes: WNL Breast(s): Yes: WNL Musculoskeletal: Yes: WNL, Joint Stiffness (to thumbs BL), Other Extremities: Yes: Other (CAM Boot to RLE) Edema: No Peripheral Pulses WNL: Yes Peripheral Pulses: Left Radial: 2+, Right Radial: 2+, Left Doralis Pedis: 2+, Right Dorsalis Pedis: 2+, Left Femoral: 2+, Right Femoral: 2+ Integumentary: Yes: WNL Neurological: Yes: WNL, Alert, Oriented ...Motor Strength: WNL Psychiatric: Yes: WNL, Alert, Oriented Labs: CBC, BMP 04/13/19 18:30 INR, PTT INR 1.23 (0.83-1.09) H 04/13/19 18:45 Problem List - Problems (1) HTN (hypertension) Assessment/Plan: noromotensive c/w 50mg atenolol & norvasc with decreased dose 10 5 with hold parameters Code(s): I10 - ESSENTIAL (PRIMARY) HYPERTENSION (2) HLD (hyperlipidemia) Assessment/Plan: c/w atorvastatin Code(s): E78.5 - HYPERLIPIDEMIA, UNSPECIFIED (3) CAD (coronary artery disease) Assessment/Plan: stop ASA with new GI bleed Code(s): I25.10 - ATHSCL HEART DISEASE OF [place] CORONARY ARTERY W/O ANG PCTRS (4) IDDM (insulin dependent diabetes mellitus) Assessment/Plan: BGM AC/HS with novolog sliding scale hold metformin Code(s): E11.9 - TYPE 2 DIABETES MELLITUS WITHOUT COMPLICATIONS; Z79.4 - ALF (CURRENT) USE OF INSULIN (5) Prophylactic measure Assessment/Plan: FEN start clear liquids advancing as tolerated monitor electrolyes, cbc no IVF needed DVT no chemical AC Dispo maintain on tele full code discharge planning Code(s): Z29.9 - ENCOUNTER FOR PROPHYLACTIC MEASURES, UNSPECIFIED (6) GI bleed Assessment/Plan: appreciate GI consultation plan for colonscopy with Dr Real on Will advance diet as tolerated. c/w PPI trend cbc Code(s): K92.2 - GASTROINTESTINAL HEMORRHAGE, UNSPECIFIED Qualifiers: GI bleed type/associated pathology: melena Qualified Code(s): K92.1 - Melena (7) Ankle fracture, right Assessment/Plan: s/p ORIF of ankle maintain CAM Boot PT request with assistive devices Code(s): S82.891A - OTH FRACTURE OF RIGHT LOWER LEG, INIT FOR CLOS FX Qualifiers: Encounter type: initial encounter Fracture type: closed Qualified Code(s) : S82.891A - Other fracture of right lower leg, initial encounter for closed fracture Visit type - Emergency Visit Emergency Visit: Yes ED Registration Date: 04/13/19 Care time: The patient presented to the Emergency Department on the above date and was hospitalized for further evaluation of their emergent condition. - New Patient This patient is new to me today: No - Critical Care Critical Care patient: No - Discharge Referral Referred to [facility] Med [facility] No
--- NOTE | 2019-04-14 11:28 | PN ---
Progress Note (short form) - Note Progress Note: No further bleeding since admission. Pt was transfused last night. He is very upset about staying in hospital. CBC WBC 10.1 K/mm3 (4.0-10.0) H 04/14/19 07:25 RBC 3.13 M/mm3 (4.00-5.60) L 04/14/19 07:25 Hgb 9.3 GM/dL (11.7-16.9) L 04/14/19 07:25 Hct 27.2 % (35.4-49) L 04/14/19 07:25 MCV 86.9 fl (80-96) 04/14/19 07:25 MCH 29.6 pg (25.7-33.7) 04/14/19 07:25 MCHC 34.1 g/dl (32.0-35.9) 04/14/19 07:25 RDW 16.1 % (11.9-15.9) H 04/14/19 07:25 Plt Count 245 K/MM3 (134-434) 04/14/19 07:25 MPV 8.5 fl (7.5-11.1) 04/14/19 07:25 Absolute Neuts (auto) 8.3 K/mm3 (1.5-8.0) H 04/14/19 07:25 Neutrophils % 82.3 % (42.8-82.8) 04/14/19 07:25 Lymphocytes % 7.2 % (8-40) L D 04/14/19 07:25 Monocytes % 8.6 % (3.8-10.2) 04/14/19 07:25 Eosinophils % 1.2 % (0-4.5) D 04/14/19 07:25 Basophils % 0.7 % (0-2.0) 04/14/19 07:25 Nucleated RBC % 0 % (0-0) 04/14/19 07:25 Vital Signs Temperature 97.8 F 04/14/19 06:00 Pulse Rate 63 04/14/19 06:00 Respiratory Rate 20 04/14/19 06:00 Blood Pressure 129/63 04/14/19 06:00 O2 Sat by Pulse Oximetry (%) 99 04/13/19 21:00 Will advance diet (full liquids now, advance further as tolerated). Change IV PPI to p.o. Check CBC, BMP in a.m. To obtain walker for patient. Problem List - Problems (1) GI bleed Code(s): K92.2 - GASTROINTESTINAL HEMORRHAGE, UNSPECIFIED Qualifiers: GI bleed type/associated pathology: melena Qualified Code(s): K92.1 - Melena
--- NOTE | 2019-04-14 11:34 | EKG ---
Test Reason : Blood Pressure : / mmHG Vent. Rate : 065 BPM Atrial Rate : 065 BPM P-R Int : 200 ms QRS Dur : 112 ms QT Int : 416 ms P-R-T Axes : 024 034 099 degrees QTc Int : 432 ms NORMAL SINUS RHYTHM SEPTAL INFARCT (CITED ON OR BEFORE 31-JAN-2012) ABNORMAL ECG WHEN COMPARED WITH ECG OF 28-MAR-2019 14:43, CRITERIA FOR INFERIOR INFARCT ARE NO LONGER PRESENT QUESTIONABLE CHANGE IN INITIAL FORCES OF SEPTAL LEADS NONSPECIFIC T WAVE ABNORMALITY NOW EVIDENT IN LATERAL LEADS Confirmed by IVIS ALVES MD ([id number]) on 04/14/2019 11:34:23 AM Referred By: SELIN MAGAÑA Confirmed By:IVIS ALVES MD
[2019-04-14] MEDS: PANTOPRAZOLE 40 MG TABLET (FP) PO SCH (12:37)
[2019-04-14] MEDS ORDERED: traMADol HCL 50 MG TABLET PO PRN (16:29)
[2019-04-14 17:02] LABS: BASO % 0.8 % (0-2.0); EOS % 1.9 % (0-4.5); HEMATOCRIT 28.7 % (35.4-49); HEMOGLOBIN 9.6 GM/dL (11.7-16.9); LYMPH % 9.4 % (8-40); MCH 29.6 pg (25.7-33.7); MCHC 33.6 g/dl (32.0-35.9); MEAN CELL VOLUME 88.1 fl (80-96); MEAN PLT VOLUME 8.5 fl (7.5-11.1); MONO % 7.7 % (3.8-10.2); NEUT % 80.2 % (42.8-82.8); PLATELET COUNT 258 K/MM3 (134-434); RBC 3.25 M/mm3 (4.00-5.60); RDW 16.3 % (11.9-15.9); WHITE BLOOD COUNT 10.9 K/mm3 (4.0-10.0)
[2019-04-14 18:00] LABS: PLATELET ESTIMATE ADEQUATE
[2019-04-14] MEDS: ATORVASTATIN CA 40 MG TABLET (FP) PO SCH (20:59)
[2019-04-15] MEDS: INSULIN SLIDING SCALE (NOVOLOG) 1 VIAL SQ SCH ×4 (06:03→21:20)
[2019-04-15 06:56] LABS: HEMATOCRIT 26.9 % (35.4-49); HEMOGLOBIN 9.3 GM/dL (11.7-16.9); MCH 30.1 pg (25.7-33.7); MCHC 34.7 g/dl (32.0-35.9); MEAN CELL VOLUME 86.6 fl (80-96); MEAN PLT VOLUME 8.2 fl (7.5-11.1); PLATELET COUNT 232 K/MM3 (134-434); RDW 16.1 % (11.9-15.9); WHITE BLOOD COUNT 7.5 K/mm3 (4.0-10.0)
[2019-04-15 07:23] LABS: BLOOD UREA NITROGEN 21.2 mg/dL (7-18); CALCIUM 8.7 mg/dL (8.5-10.1); CREATININE 0.8 mg/dL (0.55-1.3); MAGNESIUM 1.7 mg/dL (1.8-2.4)
--- NOTE | 2019-04-15 07:31 | PN ---
Progress Note, Physician Chief Complaint: Pt upset about being in hospital History of Present Illness: 83-year-old male with a PMH significant for HTN, HLD, CAD, carotid artery disease, and Type II NIDDM. Presented to the ED today for evaluation of coffe- ground emesis and melena Patient iswas at a rehab facility following ORIF of ankle fracture on 03/29/19. While there he has been given a daily ASA 81mg and daily enoxaparin injections. Yesterday patient began feeling weak. He had some orange juice and rachel malorie, and then vomited a large amount of what he describes as "black" fluid. This was sudden, no previous episodes. Shortly afterward patient had a loose bowel movement that he also describes as "black." Since then he has three more episodes of dark fluid vomit. He has a burning epigastric pain that radiates up into his chest, worse when lying down. Patient denies fever, sweats, chills. Denies SOB, chest pain, palpitations, diaphoresis. - Current Medication List Current Medications: Active Medications Amlodipine Besylate (Norvasc -) 5 mg PO DAILY [facility] Atenolol (Tenormin -) 50 mg PO DAILY [facility] Atorvastatin Calcium (Lipitor -) 40 mg PO HS [facility] Last Admin: 04/14/19 20:59 Dose: 40 mg Insulin Aspart (Novolog Vial Sliding Scale -) 1 vial SQ ACHS [facility]; Protocol Last Admin: 04/15/19 06:03 Dose: Not Given Pantoprazole Sodium (Protonix -) 40 mg PO DAILY [facility] Last Admin: 04/14/19 12:37 Dose: 40 mg Tramadol HCl (Ultram -) 50 mg PO Q12H PRN PRN Reason: PAIN LEVEL 6-10 - Objective Vital Signs: Vital Signs Temperature 98.0 F 04/15/19 06:00 Pulse Rate 61 04/15/19 06:00 Respiratory Rate 20 04/15/19 06:00 Blood Pressure 134/50 L 04/15/19 06:00 O2 Sat by Pulse Oximetry (%) 99 04/14/19 21:00 Additional Findings/Remarks: Constitutional: Yes: Well Nourished, No Distress, Calm Eyes: Yes: WNL, Conjunctiva Clear, EOM Intact HENT: Yes: WNL, Atraumatic, Normocephalic Neck: Yes: WNL, Supple, Trachea Midline Cardiovascular: Yes: WNL, Regular Rate and Rhythm Respiratory: Yes: WNL, Regular, CTA Bilaterally Gastrointestinal: Yes: WNL, Normal Bowel Sounds, Soft ...Rectal Exam: Yes: Deferred Genitourinary: Yes: WNL Breast(s): Yes: WNL Musculoskeletal: Yes: WNL, Joint Stiffness (to thumbs BL), Other Extremities: Yes: Other (CAM Boot to RLE) Edema: No Peripheral Pulses WNL: Yes Peripheral Pulses: Left Radial: 2+, Right Radial: 2+, Left Doralis Pedis: 2+, Right Dorsalis Pedis: 2+, Left Femoral: 2+, Right Femoral: 2+ Integumentary: Yes: WNL Neurological: Yes: WNL, Alert, Oriented ...Motor Strength: WNL Psychiatric: Yes: WNL, Alert, Oriented Labs: CBC, BMP 04/15/19 05:36 INR, PTT INR 1.23 (0.83-1.09) H 04/13/19 18:45 Problem List - Problems (1) HTN (hypertension) Assessment/Plan: noromotensive c/w 50mg atenolol & norvasc with decreased dose to 5 with hold parameters If SBP remains about >130 increased norvasc back to 10 mg (brad dose) Code(s): I10 - ESSENTIAL (PRIMARY) HYPERTENSION (2) HLD (hyperlipidemia) Assessment/Plan: c/w atorvastatin Code(s): E78.5 - HYPERLIPIDEMIA, UNSPECIFIED (3) CAD (coronary artery disease) Assessment/Plan: stop ASA with new GI bleed Code(s): I25.10 - ATHSCL HEART DISEASE OF [place] CORONARY ARTERY W/O ANG PCTRS (4) IDDM (insulin dependent diabetes mellitus) Assessment/Plan: BGM AC/HS with novolog sliding scale hold metformin Code(s): E11.9 - TYPE 2 DIABETES MELLITUS WITHOUT COMPLICATIONS; Z79.4 - MCC (CURRENT) USE OF INSULIN (5) Prophylactic measure Assessment/Plan: FEN tolerated clear liquids advanced to cardiac diet monitor electrolyes, cbc no IVF needed DVT no chemical AC Dispo maintain on tele full code discharge planning Code(s): Z29.9 - ENCOUNTER FOR PROPHYLACTIC MEASURES, UNSPECIFIED (6) GI bleed Assessment/Plan: appreciate GI consultation plan for colonscopy with Dr Farhan mckeon ines Will advance diet as tolerated. c/w PPI trend cbc Code(s): K92.2 - GASTROINTESTINAL HEMORRHAGE, UNSPECIFIED Qualifiers: GI bleed type/associated pathology: melena Qualified Code(s): K92.1 - Melena (7) Ankle fracture, right Assessment/Plan: s/p ORIF of ankle maintain CAM Boot PT to see Code(s): S82.891A - OTH FRACTURE OF RIGHT LOWER LEG, INIT FOR CLOS FX Qualifiers: Encounter type: initial encounter Fracture type: closed Qualified Code(s) : S82.891A - Other fracture of right lower leg, initial encounter for closed fracture Visit type - Emergency Visit Emergency Visit: Yes ED Registration Date: 04/13/19 Care time: The patient presented to the Emergency Department on the above date and was hospitalized for further evaluation of their emergent condition. - New Patient This patient is new to me today: No - Critical Care Critical Care patient: No - Discharge Referral Referred to [facility] Med P.C.: No
[2019-04-15] MEDS ORDERED: MAGNESIUM OXIDE 400 MG TABLET (FP) PO ONE ×2 (07:32→15:45)
[2019-04-15] MEDS: PANTOPRAZOLE 40 MG TABLET (FP) PO SCH (10:20)
[2019-04-15] MEDS: amLODIPine BESYLATE 5 MG TABLET (FP) PO SCH (10:20)
[2019-04-15] MEDS: ATENOLOL 50 MG TABLET (FP) PO SCH (10:21)
[2019-04-15] MEDS ORDERED: PT OWN MED DRAWER 7, Y5N ONE (10:51)
--- NOTE | 2019-04-15 11:42 | PN ---
Progress Note (short form) - Note Progress Note: Tolerating liquid diet. Says he had bowel movement that was not dark. Hgb/Hct steady, BUN 5. Will advance diet. Consent obtained for EGD Tuesday 04/17. Problem List - Problems (1) GI bleed Code(s): K92.2 - GASTROINTESTINAL HEMORRHAGE, UNSPECIFIED Qualifiers: GI bleed type/associated pathology: melena Qualified Code(s): K92.1 - Melena
[2019-04-15] MEDS ORDERED: INSULIN (NOVOLOG) ASPART 100 UNITS/ML 10ML VIAL SQ ONE (19:35)
[2019-04-15] MEDS: ATORVASTATIN CA 40 MG TABLET (FP) PO SCH (21:19)
[2019-04-15] MEDS ORDERED: diphenhydrAMINE HCL 25 MG CAPSULE (FP) PO ONE (21:59)
[2019-04-15] MEDS ORDERED: MELATONIN 5 MG TABLETS PO PRN (22:07)
[2019-04-16] MEDS: INSULIN SLIDING SCALE (NOVOLOG) 1 VIAL SQ SCH ×4 (06:11→21:27)
[2019-04-16 06:16] LABS: BASO % 1.1 % (0-2.0); EOS % 3.9 % (0-4.5); HEMATOCRIT 28.9 % (35.4-49); HEMOGLOBIN 9.7 GM/dL (11.7-16.9); LYMPH % 14.3 % (8-40); MCH 29.8 pg (25.7-33.7); MCHC 33.6 g/dl (32.0-35.9); MEAN CELL VOLUME 88.5 fl (80-96); MEAN PLT VOLUME 8.2 fl (7.5-11.1); MONO % 10.2 % (3.8-10.2); NEUT % 70.5 % (42.8-82.8); PLATELET COUNT 252 K/MM3 (134-434); RBC 3.26 M/mm3 (4.00-5.60); RDW 16.6 % (11.9-15.9); WHITE BLOOD COUNT 6.2 K/mm3 (4.0-10.0)
[2019-04-16 06:43] LABS: ALBUMIN 2.9 g/dl (3.4-5.0); BILIRUBIN,TOTAL 0.5 mg/dL (0.2-1); BLOOD UREA NITROGEN 15.5 mg/dL (7-18); CALCIUM 8.9 mg/dL (8.5-10.1); CREATININE 0.9 mg/dL (0.55-1.3); MAGNESIUM 1.7 mg/dL (1.8-2.4); POTASSIUM 4.7 mmol/L (3.5-5.1); TOT PROT 5.6 g/dl (6.4-8.2)
[2019-04-16] MEDS: amLODIPine BESYLATE 5 MG TABLET (FP) PO SCH (09:04)
[2019-04-16] MEDS: PANTOPRAZOLE 40 MG TABLET (FP) PO SCH (09:04)
[2019-04-16] MEDS: ATENOLOL 50 MG TABLET (FP) PO SCH (11:03)
--- NOTE | 2019-04-16 18:26 | PN ---
Progress Note, Physician Chief Complaint: awaiting EGD on 04/17 no complaints offered - Current Medication List Current Medications: Active Medications Amlodipine Besylate (Norvasc -) 5 mg PO DAILY [facility] Last Admin: 04/16/19 09:04 Dose: 5 mg Atenolol (Tenormin -) 50 mg PO DAILY [facility] Last Admin: 04/16/19 11:03 Dose: 50 mg Atorvastatin Calcium (Lipitor -) 40 mg PO HS [facility] Last Admin: 04/15/19 21:19 Dose: 40 mg Insulin Aspart (Novolog Vial Sliding Scale -) 1 vial SQ ACHS [facility]; Protocol Last Admin: 04/16/19 17:32 Dose: 2 units Melatonin (Melatonin) 5 mg PO HS PRN PRN Reason: INSOMNIA Pantoprazole Sodium (Protonix -) 40 mg PO DAILY [facility] Last Admin: 04/16/19 09:04 Dose: 40 mg Tramadol HCl (Ultram -) 50 mg PO Q12H PRN PRN Reason: PAIN LEVEL 6-10 - Objective Vital Signs: Vital Signs Temperature 98.3 F 04/16/19 14:31 Pulse Rate 56 L 04/16/19 14:31 Respiratory Rate 18 04/16/19 14:31 Blood Pressure 147/58 L 04/16/19 14:31 O2 Sat by Pulse Oximetry (%) 99 04/16/19 10:00 Constitutional: Yes: No Distress, Calm Eyes: Yes: Conjunctiva Clear, PERRL HENT: Yes: Atraumatic, Normocephalic Neck: Yes: Supple, Trachea Midline Cardiovascular: Yes: Regular Rate and Rhythm Respiratory: Yes: Regular, CTA Bilaterally Gastrointestinal: Yes: Normal Bowel Sounds, Soft ...Rectal Exam: Yes: Deferred Musculoskeletal: Yes: WNL Extremities: Yes: WNL Edema: No Peripheral Pulses WNL: Yes Peripheral Pulses: Left Radial: 2+, Right Radial: 2+, Left Doralis Pedis: 2+, Right Dorsalis Pedis: 2+ Neurological: Yes: Alert, Oriented ...Motor Strength: WNL Psychiatric: Yes: Alert, Oriented Labs: CBC, BMP 04/16/19 05:05 04/16/19 05:05 INR, PTT INR 1.23 (0.83-1.09) H 04/13/19 18:45 Impression/Plan Impression/Plan: - Problems (1) HTN (hypertension) c/w 50mg atenolol & norvasc 5mg daily Code(s): I10 - ESSENTIAL (PRIMARY) HYPERTENSION (2) HLD (hyperlipidemia) c/w atorvastatin 40mg qhs Code(s): E78.5 - HYPERLIPIDEMIA, UNSPECIFIED (3) CAD (coronary artery disease) hold Aspirin due to GI bleed Code(s): I25.10 - ATHSCL HEART DISEASE OF [place] CORONARY ARTERY W/O ANG PCTRS (4) IDDM (insulin dependent diabetes mellitus) BGM AC/HS with novolog sliding scale hold metformin Code(s): E11.9 - TYPE 2 DIABETES MELLITUS WITHOUT COMPLICATIONS; Z79.4 - INTERMEDIATE (CURRENT) USE OF INSULIN (5) Prophylactic measure Assessment/Plan: FEN cardiac diet DVT- SCDs Melatonin 5mg qhs Dispo: home when stable maintain on tele full code discharge planning Code(s): Z29.9 - ENCOUNTER FOR PROPHYLACTIC MEASURES, UNSPECIFIED (6) GI bleed Assessment/Plan: appreciate GI consultation plan for Endoscopy with Dr Real on , 04/17 c/w PPI trend cbc Code(s): K92.2 - GASTROINTESTINAL HEMORRHAGE, UNSPECIFIED Qualifiers: GI bleed type/associated pathology: melena Qualified Code(s): K92.1 - Melena (7) Ankle fracture, right Assessment/Plan: s/p ORIF of ankle maintain CAM Boot PT evaluation tramadol PRN pain Code(s): S82.891A - OTH FRACTURE OF RIGHT LOWER LEG, INIT FOR CLOS FX Qualifiers: Encounter type: initial encounter Fracture type: closed Qualified Code(s) : S82.891A - Other fracture of right lower leg, initial encounter for closed fracture Visit type - Emergency Visit Emergency Visit: Yes ED Registration Date: 04/13/19 Care time: The patient presented to the Emergency Department on the above date and was hospitalized for further evaluation of their emergent condition. - New Patient This patient is new to me today: Yes Date on this admission: 04/16/19 - Critical Care Critical Care patient: No - Discharge Referral Referred to [facility] Med P.C.: No
[2019-04-16] MEDS: ATORVASTATIN CA 40 MG TABLET (FP) PO SCH (21:27)
[2019-04-17] MEDS: INSULIN SLIDING SCALE (NOVOLOG) 1 VIAL SQ SCH ×2 (06:03→11:48)
[2019-04-17 07:40] LABS: BASO % 0.5 % (0-2.0); EOS % 3.5 % (0-4.5); HEMATOCRIT 28.6 % (35.4-49); HEMOGLOBIN 9.7 GM/dL (11.7-16.9); LYMPH % 13.2 % (8-40); MCH 29.9 pg (25.7-33.7); MCHC 33.8 g/dl (32.0-35.9); MEAN CELL VOLUME 88.4 fl (80-96); MEAN PLT VOLUME 8.3 fl (7.5-11.1); MONO % 9.9 % (3.8-10.2); NEUT % 72.9 % (42.8-82.8); PLATELET COUNT 256 K/MM3 (134-434); RBC 3.24 M/mm3 (4.00-5.60); RDW 16.7 % (11.9-15.9); WHITE BLOOD COUNT 6.3 K/mm3 (4.0-10.0)
[2019-04-17 07:52] LABS: ALBUMIN 2.9 g/dl (3.4-5.0); BILIRUBIN,TOTAL 0.6 mg/dL (0.2-1); BLOOD UREA NITROGEN 11.8 mg/dL (7-18); CALCIUM 8.8 mg/dL (8.5-10.1); CREATININE 0.9 mg/dL (0.55-1.3); MAGNESIUM 1.7 mg/dL (1.8-2.4); PHOSPHOROUS 3.2 mg/dL (2.5-4.9); TOT PROT 5.6 g/dl (6.4-8.2)
--- NOTE | 2019-04-17 09:46 | PN ---
Progress Note (short form) - Note Progress Note: EGD->small duodenal ulcer, not bleeding now. No objection to discharge. Pt advised to avoid NSAIDs; continue PPI for 4 weeks. Problem List - Problems (1) GI bleed Code(s): K92.2 - GASTROINTESTINAL HEMORRHAGE, UNSPECIFIED Qualifiers: GI bleed type/associated pathology: melena Qualified Code(s): K92.1 - Melena
[2019-04-17] MEDS: ATENOLOL 50 MG TABLET (FP) PO SCH (10:40)
[2019-04-17] MEDS: PANTOPRAZOLE 40 MG TABLET (FP) PO SCH (10:40)
[2019-04-17] MEDS: amLODIPine BESYLATE 5 MG TABLET (FP) PO SCH (10:40)
--- NOTE | 2019-04-17 12:40 | PN ---
Progress Note, Physician - Current Medication List Current Medications: Active Medications Amlodipine Besylate (Norvasc -) 5 mg PO DAILY [facility] Last Admin: 04/17/19 10:40 Dose: 5 mg Atenolol (Tenormin -) 50 mg PO DAILY [facility] Last Admin: 04/17/19 10:40 Dose: 50 mg Atorvastatin Calcium (Lipitor -) 40 mg PO HS [facility] Last Admin: 04/16/19 21:27 Dose: 40 mg Insulin Aspart (Novolog Vial Sliding Scale -) 1 vial SQ ACHS [facility]; Protocol Last Admin: 04/17/19 11:48 Dose: 2 units Melatonin (Melatonin) 5 mg PO HS PRN PRN Reason: INSOMNIA Pantoprazole Sodium (Protonix -) 40 mg PO DAILY [facility] Last Admin: 04/17/19 10:40 Dose: 40 mg Tramadol HCl (Ultram -) 50 mg PO Q12H PRN PRN Reason: PAIN LEVEL 6-10 - Objective Vital Signs: Vital Signs Temperature 97.7 F 04/17/19 10:31 Pulse Rate 58 L 04/17/19 10:31 Respiratory Rate 16 04/17/19 10:31 Blood Pressure 146/67 04/17/19 10:31 O2 Sat by Pulse Oximetry (%) 98 04/17/19 10:05 Labs: CBC, BMP 04/17/19 06:00 04/17/19 06:00 INR, PTT INR 1.23 (0.83-1.09) H 04/13/19 18:45
[2019-04-17] MEDS ORDERED: MAGNESIUM OXIDE 400 MG TABLET (FP) PO ONE (13:00)
--- NOTE | 2019-04-17 13:42 | PN ---
Progress Note (short form) - Note Progress Note: pt s/p ORIF ankle admitted for UGIB notes ankle feeling well was supposed to come in today for suture removal pe: wound cdi sutures removed calves soft NT sens int to LT 2+ dp ehl fhl intact a/p: R ankle ORIF pt healing well continue nwb continue cam boot ok for ROM exercises
[2019-04-17 15:02] VITALS: BP 108/47; PULSE 55; TEMP 98.2
--- NOTE | 2019-04-17 15:57 | DS ---
Physical Exam: SUBJECTIVE: Patient seen and examined OBJECTIVE: Vital Signs Period Temp Pulse Resp BP Sys/Ruiz Pulse Ox Last 24 Hr 97.7 F-98.4 F 55-62 13-19 108-146/47-67 97-99 PHYSICAL EXAM GENERAL: The patient is awake, alert, and fully oriented, in no acute distress. HEAD: Normal with no signs of trauma. EYES: PERRL, extraocular movements intact, sclera anicteric, conjunctiva clear. ENT: Ears normal, nares patent, oropharynx clear without exudates, moist mucous membranes. NECK: Trachea midline, full range of motion, supple. LUNGS: Breath sounds equal, clear to auscultation bilaterally, no wheezes, no crackles, no accessory muscle use. HEART: Regular rate and rhythm, S1, S2 without murmur, rub or gallop. ABDOMEN: Soft, nontender, nondistended, normoactive bowel sounds, no guarding, no rebound, no hepatosplenomegaly, no masses. EXTREMITIES: 2+ pulses, warm, well-perfused, no edema. NEUROLOGICAL: Cranial nerves II through XII grossly intact. Normal speech, gait not observed. PSYCH: Normal mood, normal affect. SKIN: Warm, dry, normal turgor, no rashes or lesions noted. LABS Laboratory Results - last 24 hr 04/13/19 04/16/19 04/16/19 15:50 17:25 21:24 WBC RBC Hgb Hct MCV MCH MCHC RDW Plt Count MPV Absolute Neuts (auto) Neutrophils % Lymphocytes % Monocytes % Eosinophils % Basophils % Nucleated RBC % Sodium Potassium Chloride Carbon Dioxide Anion Gap BUN Creatinine Est GFR (CKD-EPI)AfAm Est GFR (CKD-EPI)NonAf POC Glucometer 161 273 Random Glucose Calcium Phosphorus Magnesium Total Bilirubin AST ALT Alkaline Phosphatase Total Protein Albumin Blood Type O POSITIVE Antibody Screen Negative Crossmatch See Detail 04/17/19 04/17/19 04/17/19 05:52 06:00 06:00 WBC 6.3 RBC 3.24 L Hgb 9.7 L Hct 28.6 L MCV 88.4 MCH 29.9 MCHC 33.8 RDW 16.7 H Plt Count 256 MPV 8.3 Absolute Neuts (auto) 4.6 Neutrophils % 72.9 Lymphocytes % 13.2 Monocytes % 9.9 Eosinophils % 3.5 Basophils % 0.5 Nucleated RBC % 0 Sodium 138 Potassium 4.0 Chloride 104 Carbon Dioxide 29 Anion Gap 5 L BUN 11.8 Creatinine 0.9 Est GFR (CKD-EPI)AfAm 89.95 Est GFR (CKD-EPI)NonAf 77.61 POC Glucometer 163 Random Glucose 129 H Calcium 8.8 Phosphorus 3.2 Magnesium 1.7 L Total Bilirubin 0.6 AST 18 ALT 28 Alkaline Phosphatase 73 Total Protein 5.6 L Albumin 2.9 L Blood Type Antibody Screen Crossmatch 04/17/19 11:45 WBC RBC Hgb Hct MCV MCH MCHC RDW Plt Count MPV Absolute Neuts (auto) Neutrophils % Lymphocytes % Monocytes % Eosinophils % Basophils % Nucleated RBC % Sodium Potassium Chloride Carbon Dioxide Anion Gap BUN Creatinine Est GFR (CKD-EPI)AfAm Est GFR (CKD-EPI)NonAf POC Glucometer 197 Random Glucose Calcium Phosphorus Magnesium Total Bilirubin AST ALT Alkaline Phosphatase Total Protein Albumin Blood Type Antibody Screen Crossmatch HOSPITAL COURSE: Date of Admission:04/13/19 Date of Discharge: 04/17/19 Discharge Summary Reason For Visit: GI BLEED Current Active Problems CAD (coronary artery disease) (Acute) GI bleed (Acute) HLD (hyperlipidemia) (Acute) HTN (hypertension) (Acute) IDDM (insulin dependent diabetes mellitus) (Acute) Prophylactic measure (Acute) Condition: Improved - Instructions Diet, Activity, Other Instructions: discharge to [facility] Mr. Samson. You had an EGD which showed a small duodenal ulcer, not bleeding now. STOP ASPIRIN, STOP BLOOD THINNERS. CONTINUE PROTONIX FOR 4 MORE WEEKS Disposition: [facility] - Home Medications Comprehensive Discharge Medication List: Ambulatory Orders Aspirin [Aspirin EC] 81 mg PO DAILY 04/13/19 Glipizide [Glucotrol] 10 mg PO BID 04/13/19 Insulin Sliding Scale [Novolog Vial Sliding Scale -] 0 units SQ BIDAC 04/13/19 Metformin HCl [Glucophage] 1,000 mg PO BID 04/13/19 Oxycodone HCl 5 mg PO PRN 04/13/19 Amlodipine Besylate [Norvasc -] 5 mg PO DAILY tablet 04/17/19 Atenolol [Tenormin -] 50 mg PO DAILY #0 tablet 04/17/19 Atorvastatin Ca [Lipitor] 40 mg PO HS tablet 04/17/19 Insulin Sliding Scale [Novolog Vial Sliding Scale -] 1 vial SQ ACHS units 04/17 Melatonin 5 mg PO HS PRN tab 04/17/19 Pantoprazole Sodium [Protonix -] 40 mg PO DAILY tablet.ec 04/17/19 - Discharge Referral Referred to [facility].: No
--- NOTE | 2019-04-18 17:49 | PATH ---
Surgical Pathology Report Patient Name: ISAIAS MENDOZA [facility]. Rec. #: [id number] /Age/Gender: 1935 (Age: 83) / M Account: [id number] Location: [address] [place], [place] [address]S/AD Taken: 04/17/2019 Received: 04/17/2019 Reported: 04/18/2019 Physicians: Blake Real M.D. Specimen(s) Received ANTRUM Clinical History GI bleeding. Postoperative diagnosis: Duodenal ulcer Final Diagnosis STOMACH, ANTRUM, BIOPSY: GASTRIC ANTRAL MUCOSA WITH MODERATE CHRONIC GASTRITIS. IMMUNOHISTOCHEMICAL STAIN FOR H. PYLORI IS NEGATIVE. Electronically Signed Tonya Dominique M.D. Gross Description Received in formalin, labeled "antrum" is a lima, irregular portion of soft tissue measuring 0.2 cm. in greatest dimension. The specimen is submitted in toto in one cassette. AE/04/17/2019 ebram/04/17/2019
== END 2019-04-17 16:30 | DRG 378 ==
LOC: FER 12:00 → J6S 17:21 → J4S 20:10
PROVIDERS: ADMIT Internal Medicine; ATTEND Nurse Practitioner Family
PROC: 30233N1 Transfusion of Nonautologous Red Blood Cells into Peripheral Vein, Percutaneous Approach (ICD-10-PCS; 2019-04-13)
PROC: 0DB68ZX Excision of Stomach, Via Natural or Artificial Opening Endoscopic, Diagnostic (ICD-10-PCS; 2019-04-17)
PROC: 0DB98ZX Excision of Duodenum, Via Natural or Artificial Opening Endoscopic, Diagnostic (ICD-10-PCS; principal; 2019-04-17 10:45)
DX: K26.4 Chronic or unspecified duodenal ulcer with hemorrhage (principal); R71.0 Precipitous drop in hematocrit; I25.10 Atherosclerotic heart disease of native coronary artery without angina pectoris; I10 Essential (primary) hypertension; E78.5 Hyperlipidemia, unspecified; E11.9 Type 2 diabetes mellitus without complications; S82.891A Other fracture of right lower leg, initial encounter for closed fracture; Z79.4 Long term (current) use of insulin
CPT/HCPCS: 36415; 36430; 71046-TC-FY; 72100-TC-FY; 80048; 80053; 82272; 82550; 82962; 83690; 83735; 84100; 84484; 85025; 85027; 85610; 86850; 86900; 86901; 86922; 88305-TC; 93005; 97116-GP; 97161-GP; 99284-25; J0131; J7030; P9038; P9058